=== PATIENT | female | born 1955 | race Caucasian/White ===

== ENCOUNTER 2017-11-30 00:13 | Outpatient (CLI) | payer BC, SELFPAY ==
--- NOTE | 2017-11-30 14:55 | DI.MAMMO_ITS ---
SYMPTOM/DIAGNOSIS: SCREENING FOR BREAST CA. MAMMOGRAM: Mammograms were interpreted according to the usual protocol including computer analysis with CAD system, tomosynthesis and C view imaging. No masses or microcalcifications are seen. There is nothing to suggest malignancy. IMPRESSION: Negative mammogram. Category 1, breast density D.. Routine screening is recommended. [facility] ASSESSMENT OF FINDINGS: Negative. Category 1. Patient will receive a letter notifying them of these results. BI-RADS category D. The breasts are extremely dense, which lowers the sensitivity of mammography.
== END 2017-11-30 00:33 ==
PROVIDERS: Visit Provider Nurse Practitioner
DX: Z12.31 Encounter for screening mammogram for malignant neoplasm of breast (principal)
CPT/HCPCS: 77063; 77067

== ENCOUNTER 2018-11-23 10:52 | Outpatient (REF) | payer BC, SELFPAY ==
[2018-11-23 21:38] LABS: ALT 28 U/L (14-59); AST 17 U/L (15-37); Alkaline Phosphatase 80 U/L (46-116); Anion Gap 10.1 mmol/L (3-11); BUN 14 mg/dL (7-18); Bilirubin, Total 0.4 mg/dL (0.2-1.0); CO2 27.9 mmol/L (21.0-32.0); CREATININE 0.59 mg/dL (0.55-1.02); Calcium 9.1 mg/dL (8.5-10.1); Calculated LDL 129 mg/dL; Chloride 103 mmol/L (98-107); Cholesterol 229 mg/dL (50-200); Glucose 91 mg/dL (70-100); HDL Cholesterol 72 mg/dL (40-60); Potassium 4.3 mmol/L (3.5-5.1); Sodium 141 mmol/L (136-145); Total Protein 6.8 g/dL (6.4-8.2); Triglyceride 144 mg/dL (30-150)
[2018-11-25 13:49] LABS: Hepatitis C Ab w Rflx HCV PCR Negative (NEGAT)
== END 2018-11-23 11:12 ==
LOC: NCHCN 10:52
PROVIDERS: PCP Nurse Practitioner Family; Visit Provider Nurse Practitioner Family
DX: I10 Essential (primary) hypertension (principal); K30 Functional dyspepsia; C7A.8 Other malignant neuroendocrine tumors; G47.61 Periodic limb movement disorder; K80.20 Calculus of gallbladder without cholecystitis without obstruction; Z11.59 Encounter for screening for other viral diseases
CPT/HCPCS: 80053; 80061; 86803

== ENCOUNTER 2019-10-24 19:57 | Outpatient (REF) | payer BC, SELFPAY ==
[2019-10-24 21:03] LABS: Abs Immature Grans 0.01 10^3/uL (0.0-0.06); Absolute Basophil Count 0.05 10^3/uL (0.0-0.2); Absolute Lymphocyte Count 1.77 10^3/uL (1.2-3.4); Absolute Monocyte Count 0.56 10^3/uL (0.1-0.8); Absolute Neutrophil Count 3.28 10^3/uL (1.2-6.7); Basophils % 0.9; Eosinophils % 1.7; HCT 42.1 % (36.0-46.0); HGB 14.2 g/dL (11.2-15.7); Immature Grans % 0.2; Lymphocytes % 30.7; MCH 32.3 pg (27.0-33.0); MCHC 33.7 % (32.0-36.0); MCV 95.7 fL (80-95); MPV 10.2 fL (8.0-11.0); Monocytes % 9.7; Neutrophils % 56.8; Nucleated RBC 0 %; Platelet Count 264 10^3/uL (130-400); RDW 11.8 % (11.7-14.6); RDW-SD 41.4 fL; WBC 5.77 10^3/uL (4.4-10.8)
[2019-10-24 21:23] LABS: ALT 20 U/L (14-59); AST 20 U/L (15-37); Albumin 4.1 g/dL (3.4-5.0); Alkaline Phosphatase 82 U/L (46-116); Anion Gap 9.3 mmol/L (3-11); BUN 16 mg/dL (7-18); Bilirubin, Total 0.5 mg/dL (0.2-1.0); CO2 26.7 mmol/L (21.0-32.0); CREATININE 0.62 mg/dL (0.55-1.02); Calcium 9.2 mg/dL (8.5-10.1); Calculated LDL 152 mg/dL (<100); Chloride 104 mmol/L (98-107); Cholesterol 247 mg/dL (<200); Glucose 93 mg/dL (74-106); HDL Cholesterol 73 mg/dL (40-60); Potassium 4.1 mmol/L (3.5-5.1); Sodium 140 mmol/L (136-145); TSH (W/Ref FT4) 1.59 uIU/mL (0.36-3.74); Total Protein 6.9 g/dL (6.4-8.2); Triglyceride 112 mg/dL (<150)
== END 2019-10-24 20:17 ==
LOC: NCHCN 19:57
PROVIDERS: PCP Nurse Practitioner Family; Visit Provider Nurse Practitioner Family
DX: F41.8 Other specified anxiety disorders (principal); R07.89 Other chest pain; G47.62 Sleep related leg cramps
CPT/HCPCS: 80053; 80061; 83735; 84443; 85025

== ENCOUNTER 2019-10-28 11:13 | Outpatient (CLI) | payer BC, SELFPAY | END 2019-10-28 11:33 | PROVIDERS: PCP Nurse Practitioner Family; Visit Provider Nurse Practitioner Family | DX: R07.89 Other chest pain (principal); I47.1 Supraventricular tachycardia | CPT/HCPCS: 93226 ==

== ENCOUNTER 2019-11-10 00:43 | Outpatient (CLI) | payer BC, SELFPAY ==
--- NOTE | 2019-10-31 08:44 | W.HOLTRPT ---
Date of service: 10/31/19 Time of Service: 08:44 Holter Monitor Report Referring Provider:: Gabriela Indications:: Chest pressure Holter Monitor Note: Is a 48-hour Holter monitor ordered for indication of chest pressure. ?Patient was in normal sinus rhythm for majority the recording with an average heart rate of 73 bpm. ?There were 2 episodes of supraventricular tachycardia with the longest lasting 5 beats. There were rare PACs. ?There are no episodes of ventricular tachycardia and rare PVCs. ?There are no episodes of atrial fibrillation no pauses greater than 3 seconds no evidence of high degree heart block. ?There were no patient triggered events.
--- NOTE | 2019-11-10 08:00 | ETT_ITS ---
APPROVED REPORT Exam: Exercise Treadmill Patient Location: Out-Patient Room/Bed: Stress Nurse: Trish Cheung RN BMI: 21.29 Baseline Rhythm: Sinus Rhythm Indications: Patient reports since approximately 3 weeks ago she has had episodes of lightheadedness, ???heart beating fast??? and mid chest ???tightness??? (05/16) when climbing stairs and biking hard t hat is relieved with sitting and resting. Patient states she thinks it is just stress. Medical History Medical History: Anxiety, Depression. Cardiac Medications: Lisinopril, Metoprolol Succinate. Allergies: No known drug allergies Cardiac Risk Factors: FHX of CAD, HTN, Hyperlipidemia. Previous Cardiac Procedures: None Pretest Chest Pain Characteristics: None Exercise History: Physically active Physical Disabilities: None Lung Sounds: Clear to auscultation Heart Sounds: Regular Stress Test Details Test: Exercise stress testing was performed using a Roman protocol. Rest Stress HR Resting HR Supine: 74 bpm Max Heart Rate (APMHR): 156 bpm Resting HR Standin bpm Target HR (85% APMHR): 132 bpm Max HR Achieved: 160 bpm % of APMHR: 102 HR response to stress: Normal HR response to stress BP Resting BP Supine: 138/72 mmHg Resting BP Standin/78 mmHg Max BP: 174/68 mmHg BP response to stress: Normal blood pressure response to stress. ECG Resting ECG: Sinus Rhythm Ectopy: Occasional PAC's and PVC's Stress ECG: No significant ST segment changes noted. Clinical Reason for Termination: Fatigue Stress Symptoms: None reported per patient. Exercise duration: 12 min2 sec Highest Stage Reached: Stage 4: 4.2 mph at 16% grade. Exercise capacity: 13.49 METs Functional Capacity: Above average capacity Stress ECG Conclusion 1. The resting electrocardiogram was normal. The patient exercised on the Roman protocol and complet ed a workload of 13.49 METS. 2. Normal heart rate and blood pressure response to exercise. Above average exercise capacity 3. Electrocardiographically there was no evidence of myocardial ischemia 4. Sporadic atrial and ventricular ectopic beats were seen 5. Reyna treadmill score is is +12, low risk, 99% survival at 5 years Stress Test Summary STAGE Time (mins) Speed (mph) Grade (%) HR BP SYMPTOMS METS Supine 74 138/72 Standing 86 134/78 1 3 1.7 10 109 130/68 4.6 2 6 2.5 12 128 144/64 7 3 9 3.4 14 138 152/64 10.2 1 min recovery 152 174/68 3 min recovery 98 158/66 6 min recovery 92 140/70
== END 2019-11-10 01:03 ==
PROVIDERS: PCP Nurse Practitioner Family; Visit Provider Nurse Practitioner Family
DX: R07.89 Other chest pain (principal); I47.1 Supraventricular tachycardia
CPT/HCPCS: 93017

== ENCOUNTER 2019-11-23 10:22 | Outpatient (REF) | payer BC, SELFPAY ==
--- NOTE | 2019-11-23 09:00 | PAPFT_PTH ---
PATIENT: Luisana Cotter LOC: [facility]#:[id number] AGE/SX: 64/F ROOM: RE11/23/[address]: Megan Morley : 1955 BED: DIS: 11/23/2019 SPEC #: [id number] RECD: 11/24/19 13:11 STATUS: XIOMARA REQ #: [id number] CAITLYN: 11/23/19 09:[address]: Megan Morley DEPT: [facility] Cytology RECD BY: Corrie Dangelo ENTERED: 11/24/19 13:11 SP TYPE: PAPFT OTHR DR: Sobeida Morgan Tissues: 1 - CX/ENDOCX FOR PAP SMEARS Procedures: PAP THIN PREP/UVM Screening Comments: [id number] (UNSATISFACTORY FOR EVALUATION)
== END 2019-11-23 10:42 ==
LOC: NCHCN 10:22
PROVIDERS: PCP Nurse Practitioner Family
DX: R87.615 Unsatisfactory cytologic smear of cervix (principal)
CPT/HCPCS: 88142

== ENCOUNTER 2019-12-16 03:53 | Outpatient (CLI) | payer BC, SELFPAY ==
--- NOTE | 2019-12-16 | DI.MAMMO_ITS ---
EXAM: MG MAMMO SCREENING CLINICAL HISTORY: SCREENING, Z12.39 TECHNIQUE: Mammograms were interpreted according to the usual protocol including computer analysis w [employer] CAD system, tomosynthesis and C-view imaging. COMPARISON: FINDINGS: The breasts are heterogeneously dense. No dominant mass or clumped microcalcification is identified in either breast. The current examination is compared with previous examinations including November 2017 and there has been no gross interval change in appearance in comparison with the prior studies. IMPRESSION: No specific evidence of malignancy at this time. Routine screening examinations are suggested at yea rly intervals in this age group according to the ACS ACR guidelines. BI-RADS Category 1 - Negative Breast Density - Category C - Heterogeneously dense
== END 2019-12-16 04:13 ==
PROVIDERS: PCP Nurse Practitioner Family
DX: Z12.31 Encounter for screening mammogram for malignant neoplasm of breast (principal)
CPT/HCPCS: 77063; 77067

== ENCOUNTER 2020-03-13 16:25 | Outpatient (REF) | payer BC, SELFPAY ==
--- NOTE | 2020-03-13 14:30 | PAPFT_PTH ---
PATIENT: Luisana Cotter LOC: [facility]#:[id number] AGE/SX: 64/F ROOM: RE03/13/[address]: Sobeida Morgan : 1955 BED: DIS: 03/13/2020 SPEC #: [id number] RECD: 03/14/20 12:54 STATUS: XIOMARA REJayda #: [id number] CAITLYN: 03/13/20 14:[address]: Sobeida Morgan DEPT: [facility] Cytology RECD BY: Corrie Dangelo Tissues: 1 - CX/ENDOCX FOR PAP SMEARS Procedures: PAP THIN PREP/UVM Screening HPV DNA PROBE Comments: [id number]
== END 2020-03-13 16:45 ==
LOC: NCHCN 16:25
PROVIDERS: PCP Nurse Practitioner Family; Visit Provider Nurse Practitioner Family
DX: Z12.4 Encounter for screening for malignant neoplasm of cervix (principal); Z11.51 Encounter for screening for human papillomavirus (HPV)
CPT/HCPCS: 88142; 87624

== ENCOUNTER 2020-12-25 08:27 | Outpatient (REF) | payer BC, SELFPAY ==
[2020-12-25 15:59] LABS: Calculated LDL 172 mg/dL (<100); Cholesterol 260 mg/dL (<200); HDL Cholesterol 74 mg/dL (40-60); Triglyceride 74 mg/dL (<150)
== END 2020-12-25 08:28 | disposition home or self-care (01) ==
LOC: NCHCN 08:27
PROVIDERS: PCP Nurse Practitioner Family; Visit Provider Internal Medicine
DX: I10 Essential (primary) hypertension (principal); I47.1 Supraventricular tachycardia; E78.5 Hyperlipidemia, unspecified
CPT/HCPCS: 80061

== ENCOUNTER → 2022-01-09 01:43 | Outpatient (CLI) | payer MEDICARE, SELFPAY ==
--- NOTE | 2022-01-09 08:16 | DI.MAMMO_ITS ---
Exam(s) MAMMO SCREENING EXAM: MAMMO SCREENING CLINICAL HISTORY: SCREENING, Z12.39 TECHNIQUE: Mammograms were interpreted according to the usual protocol including computer analysis w [facility] CAD system, tomosynthesis and C-view imaging. COMPARISON: FINDINGS: The breasts are heterogeneously dense. No dominant mass or clumped microcalcification is identified in either breast. Current examination is compared with previous examinations including December 2019 and there has been no gross interval change in appearance in comparison with the prior studies. IMPRESSION: No specific evidence of malignancy at this time. Routine screening examinations are suggested at yea rly intervals in this age group according to the ACS ACR guidelines. BI-RADS Category 1 - Negative Breast Density - Category C - Heterogeneously dense
== END ==
PROVIDERS: PCP Nurse Practitioner Family; Visit Provider Nurse Practitioner Family
DX: Z12.31 Encounter for screening mammogram for malignant neoplasm of breast (principal); R92.8 Other abnormal and inconclusive findings on diagnostic imaging of breast
CPT/HCPCS: 77063; 77067

== ENCOUNTER 2023-01-01 16:11 | Outpatient (REF) | payer MEDICARE, SELFPAY ==
[2023-01-01 15:18] LABS: ALT 26 U/L (14-59); AST 20 U/L (15-37); Albumin 3.9 g/dL (3.4-5.0); Alkaline Phosphatase 80 U/L (46-116); Anion Gap 8.6 mmol/L (3-11); BUN 14 mg/dL (7-18); Bilirubin, Total 0.5 mg/dL (0.2-1.0); CO2 27.4 mmol/L (21.0-32.0); CREATININE 0.7 mg/dL (0.55-1.02); Calcium 9.5 mg/dL (8.5-10.1); Calculated LDL 179 mg/dL (<100); Chloride 105 mmol/L (98-107); Cholesterol 285 mg/dL (<200); Estimated GFR 94.73 (mL/min/1.73m2); Glucose 98 mg/dL (74-106); HDL Cholesterol 79 mg/dL (40-60); Potassium 4.2 mmol/L (3.5-5.1); Sodium 141 mmol/L (136-145); TSH (W/Ref FT4) 1.66 uIU/mL (0.36-3.74); Total Protein 6.9 g/dL (6.4-8.2); Triglyceride 137 mg/dL (<150); Vitamin B12 384 pg/mL (193-986)
== END 2023-01-01 16:12 | disposition home or self-care (01) ==
LOC: NCHCN 16:11
PROVIDERS: PCP Nurse Practitioner Family; Visit Provider Nurse Practitioner Family
DX: F03.90 Unspecified dementia, unspecified severity, without behavioral disturbance, psychotic disturbance, mood disturbance, and anxiety; F41.8 Other specified anxiety disorders; I10 Essential (primary) hypertension; I47.10 Supraventricular tachycardia, unspecified; E78.5 Hyperlipidemia, unspecified
CPT/HCPCS: 80053; 80061; 82607; 84443

== ENCOUNTER → 2023-01-12 00:30 | Outpatient (CLI) | payer MEDICARE, SELFPAY ==
--- NOTE | 2023-01-12 | DI.MAMMO_ITS ---
Exam(s) MAMMO SCREENING EXAM: MAMMO SCREENING CLINICAL HISTORY: SCREENING FRO BREAST CANCER Z12.39,FAMILY H/O BREAST CA TECHNIQUE: Bilateral full field digital CC and MLO mammographic images were obtained with 3D tomosyn thesis and utilizing computer aided detection (CAD). COMPARISON: Available for comparison. FINDINGS: Masses/Architectural Distortion: None seen. The asymmetric breast tissue in the upper right breast is unchanged. Microcalcifications: No suspicious pleomorphic-type are seen. Skin Thickening/Nipple Retraction: None. IMPRESSION: 1. No significant interval change with no specific features of malignancy noted. 2. Unless there is more urgent need, screening mammography is recommended, as per [employer] guidelines. BI-RADS Category 2 - Benign Findings Breast Density - Category C - Heterogeneously dense Breast density category C or D implies that the patient has dense breast tissue. Dense breast tissue is very common and is not abnormal but dense breast tissue can make it harder to find cancer on a ma mmogram. Also, dense breast tissue may increase their breast cancer risk. This information about the result of the mammogram report was provided to the patient to raise their awareness. Use this report when you speak with the patient about their risks for breast cancer, which includes their family hist ory. At that time, you may recommend for more screening tests (Ultrasound or MRI) as they might be us eful based on their risk. A negative radiographic report should not delay biopsy if a dominant or clinically suspicious mass is present. Up to ten percent of cancers are not identified on mammography. A negative report may reinforce clinical impression. Adenosis and dense breasts may obscure an underlying neoplasm. False positive reports average 6 to 10%. Patient will receive a letter notifying them of these results.
== END ==
PROVIDERS: PCP Nurse Practitioner Family; Visit Provider Nurse Practitioner Family
DX: Z12.31 Encounter for screening mammogram for malignant neoplasm of breast (principal); R92.333 Mammographic heterogeneous density, bilateral breasts; Z80.3 Family history of malignant neoplasm of breast
CPT/HCPCS: 77063; 77067

== ENCOUNTER 2023-11-27 15:15 | Outpatient (REF) | payer MEDICARE, BC, SELFPAY ==
[2023-11-27 15:25] LABS: Bilirubin Negative (Negative); Blood Negative (Negative); Clarity Turbid (Clear); Glucose 100 mg/dL (Negative); Ketones Trace mg/dL (Negative); Leukocyte Esterase Negative (Negative); Nitrite Negative (Negative); Specific Gravity >= 1.030 (1.005-1.025); Urobilinogen 0.2 mg/dL (Up to 0.2); pH 5.5 (5-8)
[2023-11-27 15:48] LABS: COMMENT (LAB VIEW ONLY) 284.78 mg/dL; Microalb ug/mg Crea 5.3 ug/mg Cr
== END 2023-11-27 15:16 | disposition home or self-care (01) ==
LOC: NCHCN 15:15
PROVIDERS: PCP Nurse Practitioner Family; Visit Provider Nurse Practitioner Family
DX: I10 Essential (primary) hypertension (principal)
CPT/HCPCS: 81003; 82043; 82570

== ENCOUNTER 2023-12-21 16:47 | Outpatient (REF) | payer MEDICARE, BC, SELFPAY ==
[2023-12-21 16:05] LABS: Hemoglobin A1C 5.3 % (<5.7)
--- OUTSIDE RECORDS SUMMARY | 2023-12-21 16:48 | XMS_ITS | Encounter Summary ---
Author Organization [facility] Address [facility] [place] [address] Care Team Providers Care Automatic Profile Shaper Operator Name Role Phone Sobeida Morgan APRN Primary Care Provider [phone] Reason for Visit * Reason Comments Skin Cancer Examination Encounter Details Date Type Department Care Team (Late st Contact Info) Description 10/30/2020 9:30 AM EDT Office Visit Dermatology at [facility] [address] [place] [address] [facility] [place] [address] Seborrheic keratoses; Multiple benign nevi; Lentigines Social History Tobacco Use Types Packs/Day Years Used Date Smoking Tobacco: Never Smokeless Tobacco: Never Alcohol Use Standard Drinks/Week Comments Yes 3 (1 standard drink = 0.6 oz pur e alcohol) glass of wine 3 times a week. Sex and Gender Information Value Date Recorded Sex Assigned at Not on file Gender Identity Not on file Sexual Orientation Not on file documented as of this encounter Progress Notes * Josue Real MD - 10/30/2020 9:30 AM EDT Images from the original note were not included. DEPARTMENT OF DERMATOLOGY Medical Dermatology Clinic Provider: JOSUE REAL MD Preferred name Luisana Preferred contact method for results [x] Phone (cell) [] MyD-H [] Letter Permission to leave detailed message Yes Permission to discuss care with , Tao Past Medical History Date, location, treatment Melanoma N DN N SCC N BCC N AK Yes UV exposure & protection + history of blistering sunburn Other relevant past medical history N Family History Details Melanoma N NMSC Mother, brother Other relevant family history N Social History Occupation: works at [employer] Other: Pre-Procedure Screening Details Allergy to lidocaine, epinephrine, Dermabond, chlorhexidine, or adhesives: N Bleeding disorder or blood thinners: N Pacemaker, defibrillator, deep brain stimulator, cochlear implant: N History of Present Illness: Luisana Harris Nate is a 65 y.o. established patient who returns to the clinic today for a full skin examination with the following concerns: - Lesion on the forehead that has been present for ~6 months and is asymptomatic Last FSE: 07/26/2019 Last visit at [facility] Derm: 07/26/2019 Last visit with this provider: 07/26/2019 Medications: Reviewed in eD-H Allergies: Reviewed in eD-H Skin Examination: Full skin examination: Patient asked to undress to their comfort level. Verbalized that the provider???s preference is that the patient remove all clothing and that the provider will not examine areas patient elects to keep covered. Patient elects to keep underwear on and have the following examined: scalp, hair, face, ears, neck, chest, axillae, abdomen, back, and upper and lower extremities. Genitalia and buttocks were not examined. Assessment/Plan: A. Seborrheic Keratoses - Stuck on, waxy papules on the trunk and extremities, including forehead. - Discussed benign nature of lesions and provided reassurance. No treatment necessary at this time. B. Lentigines - Scattered light-brown, evenly pigmented, well-demarcated macules on sun-exposed areas of the trunk and extremities. - No worrisome pigmented lesions. Discussed benign nature of lesions and provided reassurance. Willcontinue to monitor. C. Benign Nevi - Scattered medium brown, evenly pigmented macules and papules on the trunk and extremities with reassuring pigment pattern on dermoscopy. - Discussed benign nature of lesions and provided reassurance. Will continue to monitor. Other: - Discussed importance of sun protection (protective clothing and SPF 30+ broad- spectrum sunscreen)and sun avoidance strategies. RTC: 1 year for FSE [] Note routed to racing secretary and handicapper [x] Recall placed in scheduling system [] Appointment scheduled before exiting Delores Funez and Janny Iqbal CMA have performed the documentation for this encounter in the presence of and acting as scribes for JOSUE REAL MD. I performed the above scribed service and agree with the accuracy of the documentation in this encounter. Reviewed and signed by: JOSUE REAL MD Dermatology [facility] documented in this encounter Plan of Treatment Upcoming Encounters Date Type Department Care Team (Late st Contact Info) Description 12/24/2023 10:00 AM EDT Office Visit Dermatology at [facility] [address] [place] [address] [facility] [address] [place] [address] documented as of this encounter Visit Diagnoses Diagnosis Seborrheic keratoses Multiple benign nevi Benign neoplasm of skin, site unspecified Lentigines Other dyschromia documented in this encounter Care Teams Automatic Profile Shaper Operator Relationship Specialty Start Date End Date Sobeida Morgan APRN [address] [place] [address] PCP - General Family Medicine 05/20/18 documented as of this encounter
--- OUTSIDE RECORDS SUMMARY | 2023-12-21 16:48 | XMS_ITS | Encounter Summary ---
Author Organization [facility] Address [facility] [place] [address] Care Team Providers Care Vibrating Screen Operator Name Role Phone Megan Morley MD Primary Care Provider [phone] Reason for Visit * Auth/Cert Specialty Diagnoses / Procedures Referred By Ara dailey Referred To Contact Diagnoses 1 yr surv from 07/17/16 Procedures PRO UPPER GI ENDOSCOPY, DIAGNOSTIC EGD, UPPER GI ENDOSCOPY Referral ID Status Reason Start Date Expiration Date Visits Re quested Visits Authorized [id number] 1 1 Encounter Details Date Type Department Care Team (Late st Contact Info) Description 09/15/2017 10:15 AM EDT - 09/15/2017 11:00 AM EDT [place] [address] Epi Rees MD [facility] [place] [address] EGD, UPPER GI ENDOSCOPY (WRVU 2.09) Social History Tobacco Use Types Packs/Day Years [...] on file documented as of this encounter Last Filed Vital Signs Vital Sign Reading Time Taken Comments Blood Pressure 142/91 09/15/2017 10:06 AM EDT Pulse 70 09/15/2017 10:06 AM EDT Temperature - - Respiratory Rate 16 09/15/2017 10:06 AM EDT Oxygen Saturation 98% 09/15/2017 10:06 AM EDT Inhaled Oxygen Concentration - - Weight 56.7 kg (125 lb) 09/15/2017 10:06 AM EDT Height 162.6 cm (5' 4) 09/15/2017 10:06 AM EDT Body Mass Index 21.46 09/15/2017 10:06 AM EDT documented in this encounter Discharge Instructions * Discharge Instructions* Mayela Hassan RN - 09/15/2017 11:52 AM EDT Please call [phone] before 8pm Mon-Fri with problems, questions or concerns. If you call after 8pm or on weekends, call the Hospital at [phone] and ask to speak to the Pay Agent solution analyst and the ice cream machine operator will contact that person for you. UPPER GI ENDOSCOPY WHAT TO EXPECT AFTER THE PROCEDURE After the test you may feel a little more gassy or bloated than usual, this is normal. ACTIVITY Because of the sedation that you received Your judgement and reaction time are affected ?? Go home and rest quietly for the remainder of the day. You may resume your normal activities tomorrow. ?? Change from one position to the next slowly. You may lose your balance unexpectedly Be careful on stairs, as you may be unsteady on your feet. FOR THE NEXT 24 HRS ?? DO NOT DRIVE OR OPERATE ANY MACHINERY ?? DO NOT DRINK ALCOHOLIC BEVERAGES ?? DO NOT SIGN LEGAL DOCUMENTS ?? If you are a smoker: DO NOT SMOKE WHILE YOU ARE ALONE Diet ?? Start by eating small portions of foods that ordinarily will not upset your stomach. Be gentle with what you choose to start with. ?? Drink plenty of fluids ( unless otherwise told not to) Medications You may have a mild sore throat. Ice chips, popsicles, over the counter throat lozenges or spray may help numb your throat. This procedure should not cause a fever. IV SITE-- slight redness or tenderness is normal, you can use warm compresses if you get concerned.If the tenderness +/or redness increases or foul drainage and a red streak occurs, please contact your PCP immediately. WHEN SHOULD YOU CALL FOR HELP? Call 911 anytime you think that you need emergency care. For example, call if: You passed out (lost consciousness). You cough up blood. You vomit blood or what looks like coffee grounds. You pass maroon or very bloody stools. Call your healthcare provider or seek immediate medical attention if: You have trouble swallowing. You have belly pain. Your stools are black or tarlike or have streaks of blood. You are sick to your stomach or cannot keep fluids down. Watch closely for changes in your health, and be sure to contact your doctor IF Your throat still hurts after a day or two You do not get better as expected. Thursday-Thursday Same Day Endo [phone] 7a-8p Otherwise contact [phone] and ask to speak to the technology specialist solution analyst Follow-up care is a magaña part of your treatment and safety. Be sure to make and go to all appointments, and call your doctor if you are having problems. Instructions have been reviewed and patient expresses understanding * Patient Instructions* Epi Rees MD - 09/15/2017 11:59 AM EDT Please see Recommendations in the Provation procedure report which is documented in the procedural note in E-DH. documented in this encounter Medications at Time of Discharge Medication Sig Dispensed Refills Start Date End Date meTOPROLOL tartrate (LOPRESSOR) 25 mg Tablet Take 25 mg by mouth daily. omeprazole (PRILOSEC) 20 mg Capsule, Delayed Release(E.C.) Take 20 mg by mouth daily. lisinopril (PRINIVIL;ZESTRIL) 10 mg Tablet Take 10 mg by mouth daily. famotidine (PEPCID) 20 mg Tablet Take 20 mg by mouth daily. 06/04/2018 documented as of this encounter H&P Notes * Epi Rees MD - 09/15/2017 11:19 AM EDT Gastroenterology and Hepatology Pre-Procedure History and Physical Exam Procedure: EGD: Indication: F/up duodenal polyps and possible microcarcinoid. EXAM: HEENT: Airway examined, oropharynx clear Mallampati Score: Per anesthesia LUNGS: Clear to auscultation HEART: Regular rate and rhythm, normal S1, S2 ABDOMEN: Normal bowel sounds, soft, non tender, non distended, A/P Proceed with the planned endoscopic procedure. ASA 2 - Patient with mild systemic disease with no functional limitations Sedation Plan: deep Risks and benefits of the procedure explained to the patient. Consent signed. documented in this encounter Miscellaneous Notes * Op Note - Epi Rees MD - 09/15/2017 11:59 AM EDT [facility] Operative Note Patient Name: Luisana Magdaleno : [id number] MR#: [id number] Case Date: 09/15/2017 Surgeon: Surgeon(s) and Role: * Epi Rees MD - Primary Preoperative diagnosis: 1 yr surv from 07/17/16 Postoperative diagnosis: * No post-op diagnosis entered * Procedure(s) (LRB): EGD, UPPER GI ENDOSCOPY (N/A) Full procedure note is documented under the Procedure section of eDH. documented in this encounter Plan of Treatment Upcoming Encounters Date Type Department Care Team (Late st Contact Info) Description 12/24/2023 10:00 AM EDT Office Visit Dermatology at [address] [address] Chika Waite MD [facility] DR [address] [place] [address] documented as of this encounter Procedures Procedure Name Priority Date/Time Associated Diagnosis Comments UPPER GI ENDOSCOPY Routine 09/15/2017 11 :34 AM EDT EGD, UPPER GI ENDOSCOPY (WRVU 2.09) 09/15/2017 11:33 AM EDT 1 yr surv from 07/17/16 documented in this encounter Results * UPPER GI ENDOSCOPY (09/15/2017 11:34 AM EDT) UPPER GI ENDOSCOPY [facility] Endoscopy ___ Procedure Date: 09/15/2017 11:34 AM ? Patient Name: Luisana Magdaleno ? Date of : 1955 ? Age: 62 ? Order #: [id number] ? Instrument Name: [id number] ? ___ Procedure: ? Upper GI endoscopy Indications: ? f/up duodenal polyps and possible ? microcarcinoid Providers: ? Epi Rees MD, Lopez Rubin, ? RN, Hilda Baker, Sap Specialist Referring MD: ?Megan Morley MD Medicines: ? Propofol per Anesthesia Complications: ? No immediate complications. ___ Procedure: ? Pre-Anesthesia Assessment: ? - Prior to the procedure, a History ? and Physical was performed, and ? patient medications, allergies and ? sensitivities were reviewed. The ? patient's tolerance of previous ? anesthesia was reviewed. ? - The risks and benefits of the ? procedure and the sedation options ? and risks were discussed with the ? patient. All questions were answered ? and informed consent was obtained. ? - ASA Grade Assessment: II - A ? patient with mild systemic disease. ? - Using IV propofol under the ? supervision of an anesthesiologist ? was determined to be medically ? necessary for this procedure based on ? patient's history of problems with ? anesthesia. ? The procedure, indications, benefits, ? risks and alternatives were explained ? to the patient. Specifically ? discussed were potential ? complications including, but not ? limited to, bleeding, perforation, ? infection, missing a cancer, and ? adverse medication reactions. The ? Endoscope was introduced through the ? mouth, and advanced to the second ? part of duodenum. The patient ? tolerated the procedure well. The ? patient tolerated the procedure well. ? Findings: ? The esophagus was normal. ? The Z-line was found 41 cm from the incisors. ? A few small sessile polyps were found in the gastric ? fundus and in the gastric body. ? Otherwise normal stomach including retroflex view of ? cardia and fundus. ? The examined duodenum was normal. ? Moderate Sedation: ? Not applicable - See Anesthesia documentation Impression: ?- Normal esophagus. ? - A few benign fundic gland gastric ? polyps. ? - Normal examined duodenum. There ? were no polyps or nodules/masses. ? - No specimens collected. Recommendation: ?- Observe patient's clinical course. ? - Reassurance. ? Attending Participation: ? I personally performed the entire procedure. ? Epi Rees MD 09/15/2017 12:03:29 PM This report has been signed electronically. Number of Addenda: 0 Note Initiated On: 09/15/2017 11:34 AM PROVATION 09/15/2017 11:3 4 AM EDT Megan Morley MD GENERAL SURGICAL ORD ERABLES PROVATION documented in this encounter Visit Diagnoses Not on filedocumented in this encounter Administered Medications Inactive Administered Medications - up to 3 most recent administrations Medication Order MAR Action Action Date Dose Rate Site lactated Ringers infusion 100 mL/hr, Intravenous, CONTINUOUS, Starting on Thu09/15/17 at 1030, Until Thu09/15/17 at 1213, Endoscopy (Day of Procedure) New Bag 09/15/2017 11:32 AM EDT New Bag 09/15/2017 10:10 AM EDT 100 mL/hr 100 mL/hr documented in this encounter Active and Recently Administered Medications Times are shown in EDT. Continuous Medication Order 09/13/2017 09/14/2017 09/15/2017 lactated Ringers infusion (CANCELED) 100 mL/hr, Intravenous, CONTINUOUS, Starting on Thu09/15/17 at 1030, Until Thu09/15/17 at 1213, Endoscopy (Day of Procedure) 1010 (New Bag - Prov ider: Lucinda Hill RN)1132 (New Bag - Provider: Dwayne Rodriguez CRNA)1145 (Anesthesia Volume Adjustment - Provider: Dwayne Rodriguez CRNA) documented in this encounter Care Teams Vibrating Screen Operator Relationship Specialty Start Date End Date Megan Morley MD [address] [place] [address] PCP - General Family Medicine 07/17/16 05/19/18 documented as of this encounter
--- OUTSIDE RECORDS SUMMARY | 2023-12-21 16:48 | XMS_ITS | Clinical Summary ---
Author Organization [facility] [place] [address] Care Team Providers Care Plunger Shovel Operator Name Role Phone Sobeida Morgan APRN Primary Care Provider [phone] Allergies No known active allergies Medications Medication Sig Dispensed Refills Start Date End Date Status lisinopril (PRINIVIL;ZESTRIL) 10 mg Tablet Take 10 mg by mouth daily. Active meTOPROLOL tartrate (LOPRESSOR) 25 mg Tablet Take 25 mg by mouth daily. Active omeprazole (PRILOSEC) 20 mg Capsule, Delayed Release(E.C.) Take 20 mg by mouth daily. Active Active Problems No known active problems Social History Tobacco Use Types Packs/Day Years Used Date Smoking Tobacco: Never Smokeless Tobacco: Never Alcohol Use Standard Drinks/Week Comments Yes 3 (1 standard drink = 0.6 oz pur e alcohol) glass of wine 3 times a week. Sex and Gender Information Value Date Recorded Sex Assigned at Not on file Gender Identity Not on file Sexual Orientation Not on file Last Filed Vital Signs Vital Sign Reading Time Taken Comments Blood Pressure 124/73 09/15/2017 12:10 PM EDT Pulse 70 09/15/2017 10:06 AM EDT Temperature - - Respiratory Rate 18 09/15/2017 12:10 PM EDT Oxygen Saturation 99% 09/15/2017 12:10 PM EDT Inhaled Oxygen Concentration - - Weight 56.7 kg (125 lb) 09/15/2017 10:06 AM EDT Height 162.6 cm (5' 4) 09/15/2017 10:06 AM EDT Body Mass Index 21.46 09/15/2017 10:06 AM EDT Plan of Treatment Upcoming Encounters Date Type Department Care Team (Late st Contact Info) Description 12/24/2023 10:00 AM EDT Office Visit Dermatology at [facility] [address] [place] [address] [facility] [place] [address] Health Maintenance Due Date Last Done Comments CT Colonography 1955 Colonoscopy 1955 Colorectal Cancer Screening 1955 FIT DNA 1955 FIT 1955 Sigmoidoscopy (10 year) with FIT yearly 1955 Sigmoidoscopy 1955 Hepatitis C Screening 05/08/1973 Tetanus/Diphtheria/Pertussis Vaccines (1 - Tdap) 05/08 Breast Cancer Share Decision Needed 1995 Breast Cancer screening 1995 Zoster vaccine (1 of 2) 05/08/2005 Advance Directive 05/08/2010 Bone Density Scan 05/08/2020 Pneumoccocal Vaccine: 65+ (1 of 1 - PCV) 05/08/2020 Covid-19 Vaccine (1 - 2022-24 season) 2023 Influenza (Flu) vaccine (1 o f 1 - Influenza standard series) 11/08/2023 Care Teams Plunger Shovel Operator Relationship Specialty Start Date End Date Sobeida Morgan APRN [address] [place] [address] PCP - General Family Medicine 05/20/18
--- OUTSIDE RECORDS SUMMARY | 2023-12-21 16:48 | XMS_ITS | Encounter Summary ---
Author Organization [facility] Address [facility] [place] [address] Care Team Providers Care Residential Designer Name Role Phone Megan Morley MD Primary Care Provider [phone] Reason for Visit * Reason Comments Skin Check * Consultation (Routine) - Closed Specialty Diagnoses / Procedures Referred By Contac t Referred To Contact Dermatology Diagnoses multiple skin lesions Sobeida Morgan APRN [address] [place] [address] [facility] [address] [place] [address] Referral ID Status Reason Start Date Expiration Date V isits Requested Visits Authorized [id number] Closed Consult, Test & Treat Connection [facility] 09/16/2016 09/16/2017 1 1 Encounter Details Date Type Department Care Team (Late st Contact Info) Description 10/20/2016 9:30 AM EDT Office Visit Dermatology at [facility] [address] [place] [id number] Sanjana Mason MD [facility] [address] [place] [address] Seborrheic keratosis, inflamed; Conteh angioma; SK (seborrheic keratosis) Social History Tobacco Use Types Packs/Day Years Used Date Smoking Tobacco: Never Smokeless Tobacco: Never Alcohol Use Standard Drinks/Week Comments Yes 0 (1 standard drink = 0.6 oz pur e alcohol) glass of wine 3 times a week. Sex and Gender Information Value Date Recorded Sex Assigned at Not on file Gender Identity Not on file Sexual Orientation Not on file documented as of this encounter Progress Notes * Sanjana Mason W - 10/20/2016 9:30 AM EDT Images from the original note were not included. DERMATOLOGY - NEW PATIENT NOTE Date of service: 10/20/2016 Luisana Sullivan : 1955, 61 y.o. CC: Lesion on back HPI: Luisana Sullivan is referred by Sobeida Morgan with the following concerns: - she requests a full skin exam. She has many moles and cannot see the ones on her back. Some have been itchy and irritated in the past few weeks, as they are on her bra line and rub against her clothing. Never before treated. - she does protect her skin from the sun with sunscreen SPF30. 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 lisinopril (PRINIVIL;ZESTRIL) 10 mg Tablet, Take 10 mg by mouth daily., Disp: , Rfl: ??? meTOPROLOL tartrate (LOPRESSOR) 25 mg Tablet, Take 25 mg by mouth daily., Disp: , Rfl: ??? famotidine (PEPCID) 20 mg Tablet, Take 20 mg by mouth daily., Disp: , Rfl: No Known Allergies Review of Systems: - General: Feels well. - Skin: No other skin concerns. Examination: - Constitutional: Patient was alert, well-appearing and in no noticeable distress. - Skin: Skin examination of the scalp, face, ears, neck, back, chest, abdomen, right and left upperextremities, right and left lower extremities, hands, feet, and buttocks was normal with the exception of the findings listed below. Diagnosis/Skin findings/Assessment/Plan: 1. Inflamed Seborrheic Keratosis, back - I discussed this condition with the patient and explored therapeutic options. I recommended this be treated with LN2, patient is in agreement to this treatment plan. Instructed to call if areas do not resolve as expected or if problems arise. Procedure Note: Procedure: Destruction of lesion(s) with cryotherapy. Number:1 Location: as above Discussed procedure and expectations including risks (including risk of hypopigmentation) and benefits. Verbal consent obtained. Frozen with LN2, 15-30 second thaw time, TWICE. There were no complications; the patient tolerated the procedure well. Post-procedure expectations and wound care were reviewed. 2. Conteh Angioma(s) - benign. - reassurance given. 3. Seborrheic Keratoses: Multiple farooq-brown, greasy, stuck-on papules on the -- Discussed the benign nature of these lesions. -- AAD handout provided 4. Discussed importance of sun protection, sun avoidance strategies, protective clothing, and sunscreen. I discussed warning signs for skin cancer, including the ABCE's of melanoma. AAD handout provided. RTC: 3 years for FBSE Note initiated by YARI MEDRANO LPN. I am documenting this encounter acting as the scribe for and inthe presence of Sanjana Mason MD I performed the above scribed service and agree with the accuracy of the documentation in this encounter. Reviewed and signed by Sanjana Mason MD Resident in Dermatology [facility] Patient discussed with staff makeup editor: Isidro Knox MD Section of Dermatology [facility] * Isidro Knox MD - 10/20/2016 9:30 AM EDT I was the supervising physician working with Dermatology resident, Dr. Mason, in the Dermatology Clinic during this patient visit. The level of resident supervision for this patient visit was indirect supervision with direct supervision immediately available (definition: [facility] GME Policy Statement on Graduate Medical Education, Supervision of Graduate Medical Trainees). I was immediately available to Dr. Mason for questions and discussion regarding this visit. I have reviewed his encounter note details and level of service. ISIDRO KNOX MD FAAD Staff Physician documented in this encounter Plan of Treatment Upcoming Encounters Date Type Department Care Team (Late st Contact Info) Description 12/24/2023 10:00 AM EDT Office Visit Dermatology at [facility] [address] [place] [address] Chika Waite MD [facility] [address] [place] [address] documented as of this encounter Visit Diagnoses Diagnosis Seborrheic keratosis, inflamed Inflamed seborrheic keratosis Conteh angioma Nevus, non-neoplastic SK (seborrheic keratosis) Other seborrheic keratosis documented in this encounter Care Teams Residential Designer Relationship Specialty Start Date End Date Megan Morley MD [address] [place] [address] PCP - General Family Medicine 07/17/16 05/19/18 documented as of this encounter
--- OUTSIDE RECORDS SUMMARY | 2023-12-21 16:48 | XMS_ITS | Encounter Summary ---
Author Organization [facility] Address [facility] [place] [address] Care Team Providers Care Learning Facilitator Name Role Phone Sobeida Morgan APRN Primary Care Provider [phone] Reason for Visit * Reason Comments Skin Cancer Examination Encounter Details Date Type Department Care Team (Late st Contact Info) Description 07/26/2019 1:00 PM EDT Office Visit Dermatology at [facility] [address] [place] [address] Kezia Real MD [facility] [place] [address] AK (actinic keratosis); SK (seborrheic keratosis); History of actinic keratosis Social History Tobacco Use Types Packs/Day Years [...] on file documented as of this encounter Patient Instructions * Patient Instructions* Calir Strickland CCMA - 07/26/2019 1:00 PM EDT Actinic Keratoses Diagnosis: You have been diagnosed today with an actinic keratosis. These dry, scaly patches are considered the earliest stage in the development of skin cancer. A significant percentage of actinic keratoses develop into squamous cell carcinoma skin cancer; estimates range from 10-20% over a 10-year period. Because of this risk, actinic keratoses are usually treated. Treatment: You were treated today with liquid nitrogen. This is the most common treatment for actinic keratoses. Liquid nitrogen is extremely cold and freezes the surface of the skin, causing the lesion to flake off. This treatment can be uncomfortable but discomfort should subside after a couple of hours. The area treated will look red and irritated, and it may blister up or turn dark, then fall off. This is normal. Wound care: You do not need any special treatment for the area, but you may find cold compresses and/or a lightapplication of Vaseline soothing. For best results, do not rub or pick at the healing lesion. Expected healing time is 3-4 weeks. Please contact the clinic if the lesion has not fully resolved after 6 weeks. Prevention: Long-term exposure to the sun is the single most significant cause of actinic keratoses, so the best defense against them is a comprehensive sun protection program. This includes wearing protective clothing and a wide-brimmed hat, avoiding the sun at midday when ultraviolet rays are strongest, staying in the shade as much as possible, and wearing a broad-spectrum sunscreen with a sun protection factor (SPF) of at least 30. Contact information: On weekdays (8am to 5pm), please call the clinic at [phone]. After 5pm, and on weekends and holidays, please call the hospital at [phone] and ask for the Traffic Court Referee Floor Coverer. documented in this encounter Progress Notes * Kezia Real MD - 07/26/2019 1:00 PM EDT DERMATOLOGY ESTABLISHED PATIENT CLINIC NOTE Date of Service: 07/26/2019 Luisana Sullivan : 1955 Provider: Kezia Real MD Chief Complaint Patient presents with ??? Skin Cancer Examination SKIN HX Personal History Y/N Date, location, treatment Melanoma No DN No SCC No BCC No AK or field cancerization therapy Yes 5FU/Carac: PDT: nicotinamide: [] Yes [] No Immunosuppression or malignancy No Blistering sunburns or tanning bed use Yes Many sunburns, some blistering Other (i.e., eczema, psoriasis) No Family History Y/N Parents, siblings, children Melanoma No NMSC Yes Mother, brother Other No Patient Preferences Preferred name Luisana Preferred contact method [] Home [x] Cell [] myD-H [] Other: Permission to leave detailed message including results [x] Yes [] No Permission to discuss care with (Tao) Preferred pharmacy [facility] in [place], [place] Procedure Screening Questions Y/N Allergies to lidocaine or epinephrine No Blood thinners No Pacemaker or defibrillator No HPI Luisana Sullivan is a 64 y.o. female, established patient last seen by me on 06/04/2018. Here today for a full skin exam with the following concerns: - Recheck right nasal tip (hx of AK s/p LN2 at last encounter); similar, non- tender lesions on the nasal dorsum and left cheek - Dry, rough lesions on the back Last FSE: 10/20/16 MEDS Current Outpatient Medications Medication Sig Dispense Refill ??? omeprazole (PRILOSEC) 20 mg Capsule, Delayed Release(E.C.) Take 20 mg by mouth daily. ??? lisinopril (PRINIVIL;ZESTRIL) 10 mg Tablet Take 10 mg by mouth daily. ??? meTOPROLOL tartrate (LOPRESSOR) 25 mg Tablet Take 25 mg by mouth daily. No current facility-administered medications for this visit. ADR No Known Allergies ROS General: Feeling well Skin: Denies other skin complaints EXAM General: NAD, pleasant, cooperative Skin: Patient was asked to undress to the level of her comfort. Verbalized that the provider's preference is for the patient to remove all clothing and that the provider will not examine areas patient elects to keep covered. Patient's decision was to remove bra and keep underwear on and have the following examined: skin of the scalp, hair, face, ears, neck, chest, breasts, abdomen, back, axillae,upper and lower extremities, hands, and feet. Buttocks and genitalia were not examined. Significant Skin Findings: A. Nasal dorsum x 1, left cheek x 1 0.2-0.3 cm scaly irregular pink papules. [Total: 2] B. Back: Brown papules/plaques with waxy stuck-on appearance. Not symptomatic or worrisome on dermoscopy. C. Right nasal tip: History of actinic keratosis; resolved s/p LN2. ASSESSMENT/PLAN A. Actinic Keratoses - Explained etiology, natural history and premalignant potential of these lesions. - Discussed treatment with cryotherapy, including the risks and benefits. - Patient elects to proceed with cryotherapy today. - Recommended moisturizer with sunscreen (such as CerGaby HEMPHILL or Patricia PARKER) for daily use. Procedure: Destruction of lesion(s) with cryotherapy (LN2). Location(s): As noted above. Number: 2 Discussed procedure and expectations, including risks (especially hypopigmentation) and benefits. Verbal consent obtained. Frozen with LN2, 15-30 second thaw time, twice. There were no complications;patient tolerated the procedure well. Post-procedure expectations and wound care reviewed. - Instructed patient to return to clinic for re-evaluation if lesions do not resolve with this treatment. B. Seborrheic Keratoses - Etiology discussed. - Patient reassured that benign in nature. C. History of Actinic Keratosis - Resolved s/p LN2. - No further treatment warranted at this time. Follow Up: RTC in 1 year for: [] FSE [x] Follow up [x] Reminder placed in system [] Appointment scheduled before exiting Note initiated by: KATLYN Vidal I am documenting this encounter acting as the scribe for and in the presence of Dr. Real: Colleen Cee I performed the above scribed service and agree with the accuracy of the documentation in this encounter. Kezia Real MD Trace Evidence Technician of Dermatology Department of Surgery [facility] cc: Sobeida Morgan APRN documented in this encounter Plan of Treatment Upcoming Encounters Date Type Department Care Team (Late st Contact Info) Description 12/24/2023 10:00 AM EDT Office Visit Dermatology at [facility] [address] [place] [address] Chika Waite MD [facility] [address] [address] documented as of this encounter Visit Diagnoses Diagnosis AK (actinic keratosis) Actinic keratosis SK (seborrheic keratosis) Other seborrheic keratosis History of actinic keratosis Personal history of diseases of skin and subcutaneous tissue documented in this encounter Care Teams Learning Facilitator Relationship Specialty Start Date End Date Sobeida Morgan APRN [address] [place] [address] PCP - General Family Medicine 05/20/18 documented as of this encounter
--- OUTSIDE RECORDS SUMMARY | 2023-12-21 16:48 | XMS_ITS | Encounter Summary ---
Author Organization [facility] Address [facility] [place] [address] Care Team Providers Care Molding Press Operator Name Role Phone Megan Morley MD Primary Care Provider [phone] Encounter Details Date Type Department Care Team (Latest Contact Info) Description 07/17/2016 6:54 AM EDT - 07/17/2016 10:55 AM EDT Hospital En[place] [address] Epi Rees MD [facility] [place] [address] Discharge Disposition: Home Social History Tobacco Use Types Packs/Day Years Used Date Smoking Tobacco: Never Alcohol Use Standard Drinks/Week Comments [...] Sign Reading Time Taken Comments Blood Pressure 143/78 07/17/2016 10:00 AM EDT Pulse 83 07/17/2016 7:40 AM EDT Temperature - - Respiratory Rate 18 07/17/2016 10:00 AM EDT Oxygen Saturation 99% 07/17/2016 10:00 AM EDT Inhaled Oxygen Concentration - - Weight 53.5 kg (118 lb) 07/17/2016 7:45 AM EDT Height 162.6 cm (5' 4) 07/17/2016 7:45 AM EDT Body Mass Index 20.25 07/17/2016 7:45 AM EDT documented in this encounter Discharge Instructions * Discharge Instructions* Tao Williamson RN - 07/17/2016 9:37 AM EDT Upper Endoscopic Ultrasound ( EUS) &/or Endoscopic Retrograde Cholangiopancreatography ( ERCP) EUS- a test to look for problems in the stomach, liver, gallbladder, and other organs- ERCP-when it is suspected that the bile or pancreatic ducts are blocked. After the test you may feel more gassy than usual. This normal Activity Because of the sedation that you received Your judgement and reaction time are affected ?? Go home and rest quietly for the remainder of the day. You may resume your normal activities tomorrow. ?? Change from one position to the next slowly. You may lose your balance unexpectedly ?? Be careful on stairs, as you may be unsteady on your feet. FOR THE NEXT 24 HRS ?? DO NOT DRIVE OR OPERATE ANY MACHINERY ?? DO NOT DRINK ALCOHOLIC BEVERAGES ?? DO NOT SIGN LEGAL DOCUMENTS ?? If you are a smoker: DO NOT SMOKE WHILE YOU ARE ALONE Diet ?? Start with liquids and progress to small portions of foods that are least likely to upset your stomach. Be gentle with what you choose to start with. Avoid gas producing foods for the next few days ?? Drink plenty of fluids ( unless your doctor has told you not to) Medicines you You may have a sore throat for a day or two after the test. You may use ice chips, popsicles, xdvf-ojh-pjubafs throat lozenges or sprays that may help numb your throat. IV SITE-- slight redness or tenderness is normal, you can use warm compresses if you get concerned.If the tenderness +/or redness increases or foul drainage and a red streak occurs, please contact your PCP immediately. When should call for help? Call 911 anytime you think you may need emergency care. For example, call if: You passed out ( lost consciousness) You cough up blood You vomit blood that looks like coffee grounds You pass maroon or very bloody stools Call you Doctor now You have trouble swallowing Throat, chest, abdominal pain that worsens after taking a dose of pain medicine Bloody or dark stools Vomit and are unable to hold fluids Fever Watch closely for any changes in your health, and be sure to contact your doctor if: Your throat still hurts after a day or two You do not get better as expected Thursday-Thursday Same Day Endo [phone] 7a-8p Otherwise contact [phone] and ask to speak to the school bus inspector materials planner/production planner The patient reports understanding discharge instructions UPPER GI ENDOSCOPY WHAT TO EXPECT AFTER [...] better as expected. Thursday-Thursday Same Day Endo [phone] 7a-8p Otherwise contact [phone] and ask to speak to the school bus inspector materials planner/production planner Follow-up care is a magaña part of your treatment and safety. Be sure to make and go to all appointments, and call your doctor if you are having problems. Instructions have been reviewed and patient expresses understanding * Patient Instructions* Epi Rees MD - 07/17/2016 10:50 AM EDT Please see Recommendations in the Provation procedure report which is documented in the procedural note in E-DH. documented in this encounter Medications at Time of Discharge Medication Sig Dispensed Refills Start Date End Date meTOPROLOL tartrate (LOPRESSOR) 25 mg Tablet Take 25 mg by mouth daily. lisinopril (PRINIVIL;ZESTRIL) 10 mg Tablet Take 10 mg by mouth daily. famotidine (PEPCID) 20 mg Tablet Take 20 mg by mouth daily. 06/04/2018 documented as of this encounter H&P Notes * Sesar Silvestre MD - 07/17/2016 8:10 AM EDT Patient Name: Luiasna Magdaleno Patient Age: 61 y.o. Birthdate: 1955 Admit date: 07/17/2016 Attending Physician: Epi Rees MD . Gastroenterology and Hepatology Pre-Procedure History and Physical Exam Procedure: EGD: EUS: Indication: small duodenal carcinoid nodule possible emr There is no problem list on file for this patient. EXAM: HEENT: Airway examined, oropharynx clear Per anesthesia report A/P Proceed with the planned endoscopic procedure. ASA 2 - Patient with mild systemic disease with no functional limitations Sedation Plan: anesthesia Risks and benefits of the procedure explained to the patient. Consent signed. 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 documented in this encounter Plan of Treatment Upcoming Encounters Date Type Department Care Team (Late st Contact Info) Description 12/24/2023 10:00 AM EDT Office Visit Dermatology at [address] [place] [address] Chika Waite MD [facility] [place] [address] documented as of this encounter Procedures Procedure Name Priority Date/Time Associated Diagnosis Comments SURGICAL PATHOLOGY REPORT Routine 07/17/2016 9:36 AM EDT SPECIMEN TO PATHOLOGY Routine 07/17/2016 9:36 AM EDT SPECIMEN TO PATHOLOGY Routine 07/17/2016 9:36 AM EDT EGD WITH BIOPSY (WRVU 2.39) 07/17/2016 8:14 AM EDT 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 . ?Surgical Pathology DIAGNOSIS A - Duodenum, bulb nodule, ?? biopsy: - George 's gland hyperplasia/ham artoma. B - Second portion duodenum, ?? polypectomy: - George 's gland hyperplasia. Electronically signed by: ??Ramon Lewis MD Verified: ??07/21/2016 ?Pathologist CLINICAL INFORMATION Specimen Submitted: A - Duodenal bulb nodule B - 2nd portion duodenal polyp Clinical History: History of duodenal carcinoid Clinical Diagnosis: Same SPECIMEN PROCESSING A - Labeled/Fixativ e: Duodenal bulb nodule, formalin. Quantity/Size: Numerous, 0.2 cm. Tissue Description: Farooq-pink, focally hemorrhagic soft tissues. Sections/Proces sing: (T3) B - Labeled/Fixativ e: Second portion duodenal polyp, formalin. Quantity/Size: Numerous fragments, 0.2-0.4 cm. Tissue Description: Wispy farooq-pink soft tissues and a polypoid fragment, 0.4 x 0.3 x 0.2 cm. Sections/Proces sing: The polypoid fragment is inked and sectioned submitted in B1. (T2) ??pps 07/21/2016 3:26 PM EDT [facility] GI Biopsy 07/17/2016 9:36 AM EDT 07/17/2016 9:36 AM EDT GI Biopsy 07/17/2016 9:36 AM EDT 07/17/2016 9:36 AM EDT Sesar Silvestre MD PATHOLOGY/CYTOLOGY Gary LOPEZ Performing Organization Address [facility] [place] [address] * Specimen to Pathology (surgical or derm) (07/17/2016 9:36 AM EDT) AP Specimen 07/17/2016 9:36 AM EDT 07/17/2016 9:36 AM EDT Narrative [facility] - 07/17/2016 9:36 AM EDT Specimen requisition ordered. ??Separate Pathology report to follow Sesar Silvestre MD PATHOLOGY/CYTOLOGY Gary LOPEZ Performing Organization Address [facility] [place] [address] * Specimen to Pathology (surgical or derm) (07/17/2016 9:36 AM EDT) AP Specimen 07/17/2016 9:36 AM EDT 07/17/2016 9:36 AM EDT Narrative [facility] - 07/17/2016 9:36 AM EDT Specimen requisition ordered. ??Separate Pathology report to follow Sesar Silvestre MD PATHOLOGY/CYTOLOGY Gary LOPEZ Performing Organization Address [facility] [place] [address] * UPPER GI ENDOSCOPY (07/17/2016 7:29 AM EDT) UPPER GI ENDOSCOPY [facility] Endoscopy Procedure Date: 07/17/2016 7:29 AM ? Patient Name: Luisana Magdaleno ? Date of : 1955 ? Age: 61 ? Order #: [id number] ? Instrument Name: [id number] ? Procedure: ? 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 Epi Rees MD, Salma Mckeon ? Yuly RN, Lopez Rubin RN, Sesar ? Deena Silvestre MD Referring : ?Megan Morley MD, Rk Echeverria ? MD Kimberli Medicines: ? Monitored Anesthesia Care Complications: ? No immediate complications. Procedure: ? Pre-Anesthesia Assessment: ? - Prior [...] and informed consent was obtained. ? - Patient identification and proposed ? procedure were verified prior to the ? procedure by the physician. The ? procedure was verified in the ? pre-procedure area. ? - Pre-procedure physical examination ? revealed no contraindications to ? sedation. ? - ASA Grade Assessment: II - A ? patient with mild systemic disease. ? - After reviewing the risks and ? benefits, the patient was deemed in ? satisfactory condition to undergo the ? procedure. ? - Monitored anesthesia care under the ? supervision of a FILLING SEPARATOR was determined ? to be medically necessary for this ? procedure based on patient's anxiety. ? The procedure, indications, benefits, ? risks [...] ? tolerated the procedure well. The ? upper GI endoscopy was accomplished ? without difficulty. The patient ? tolerated the procedure well. ? Findings: ? A single 4 mm sessile polyp/nodule was found in the ? second portion of the duodenum. The polyp was removed ? with a saline injection-lift technique using a hot ? snare. Resection and retrieval were complete. The ? defect post polypectomy was closed with 1 MRI ? conditional metallic clip. ? Nodular mucosa approx. 8 mm in diameter with scarring ? was found in the duodenal bulb approx. at 11'oclock ? as pictured. The boundaries were marked with cautery ? and the tip of the endosnare. Saline lift injection ? was attempted. Multiple attempts for EMR using ? Endocap technique and banding was attempted however ? there was significant amount of fibrosis and ? therefore successful banding/lifting could not be ? accomplished. Therefore this lesion was biopsied off ? multiple times with a cold forceps. ? The entire examined stomach was normal. ? The examined esophagus was normal. ? Moderate Sedation: ? See anesthesia notes. Impression: ?- A single duodenal polyp/nodule in ? the second portion. Resected and ? retrieved. ? - Focal nodular mucosa in the ? duodenal bulb at site of submucosal ? nodule seen on EUS-fibrosis limited ? ability to lift the lesion for EMR so ? instead multiple cold biopsy ? specimens taken into submucosal in ? hopes of avulsing/removing the lesion. Recommendation: ?- Discharge patient to home ? (ambulatory). ? - Resume previous diet. ? - Continue present medications. ? - Return to referring physician as ? previously scheduled. ? - Await pathology results. ? - Repeat upper endoscopy in 6-12 ? months for surveillance pending ? pathology. ? - The attending physician listed ? above was present for the entire ? procedure. ? Procedure Code(s): ?? --- Professional --- ? 54186, Esophagogastroduoden oscopy, ? flexible, transoral; with removal of ? tumor(s), polyp(s), or other ? lesion(s) by snare technique CPT copyright 2016 [employer]. All rights reserved. The codes documented in this report are preliminary and upon sail finisher hand review may be revised to meet current compliance requirements. Attending Participation: ? I was present and participated during the entire ? procedure, including non-magaña portions. ? Epi Rees MD 07/17/2016 10:06:55 AM This report has been signed electronically. Number of Addenda: 0 Note Initiated On: 07/17/2016 7:29 AM PROVATION 07/17/2016 7:29 AM EDT Megan Morley MD GENERAL SURGICAL ORD ERABLES PROVATION * UPPER EUS-ENDOSCOPIC ULTRASOUND (07/17/2016 7:28 AM EDT) UPPER ENDOSCOPIC ULTRASOUND [facility] Endoscopy Procedure Date: 07/17/2016 7:28 AM ? Patient Name: Luisana Magdaleno ? N: [id number] ? Date of : 1955 ? Age: 61 ? Order #: [id number] ? Instrument Name: [id number] ? Procedure: ? 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 Epi Rees MD, Salma Mckeon ? Yuly, RN, Lopez Rubin RN, Sesar ? Deena Silvestre MD Referring : ?Megan Morley MD, Rk Echeverria ? MD Kimberli Medicines: ? Propofol per Anesthesia Complications: ? No immediate complications. Procedure: ? Pre-Anesthesia Assessment: ? - Prior [...] necessary for this procedure based on ? complex procedure (ERCP, EUS). ? The procedure, indications, benefits, ? risks and alternatives were explained ? to the patient. Specifically ? discussed were potential ? complications including, but not ? limited to, bleeding, perforation, ? infection, missing a cancer, and ? adverse medication reactions.The ? Endosonoscope was introduced through ? the mouth, and advanced to the second ? part of duodenum. The patient ? tolerated the procedure well. ? Findings: ? Endoscopic exam: see EGD report. Subtle 8 mm nodule ? in proximal bulb and 2nd 4 mm polyp in 2nd portion ? opposite wall from ampulla. ? Endosonographic Finding : ? An oval intramural (subepithelial) lesion was found ? in the duodenal bulb. The lesion was hypoechoic. ? Endosonographically, the lesion appeared to originate ? from within the submucosa (Layer 3). The lesion also ? measured 4 mm in diameter. The outer margins were ? well defined. The 2nd small nodule in 2nd portion was ? not well seen by EUS. ? There was no sign of significant endosonographic ? abnormality in the common bile duct. The maximum ? diameter of the duct was 4 mm. ? Multiple stones were visualized endosonographically ? in the gallbladder body. They were hyperechoic and ? characterized by shadowing. ? Normal visualized portion of liver (limited exam). ? There was no sign of significant endosonographic ? abnormality in the entire pancreas. ? No lymphadenopathy seen. ? Moderate Sedation: ? See anesthesia notes. Impression: ?- A small 4 mm intramural ? (subepithelial) lesion was found in ? the duodenal bulb. The lesion ? appeared to originate from within the ? submucosa (Layer 3). ? The 2nd small nodule in 2nd portion ? was not well seen by EUS. ? - Gallbladder stones. Recommendation: ?- EGD and possible EMR today. ? - The attending physician listed ? above was present for the entire ? procedure. ? Attending Participation: ? I was present and participated during the entire ? procedure, including non-magaña portions. ? Epi Rees MD 07/17/2016 10:49:10 AM This report has been signed electronically. Number of Addenda: 0 Note Initiated On: 07/17/2016 7:28 AM PROVATION 07/17/2016 7:28 AM EDT Megan Morley MD GENERAL SURGICAL ORD ERABLES PROVATION documented in this encounter Visit Diagnoses Not on filedocumented in this encounter Administered Medications Inactive Administered Medications - up to 3 most recent administrations Medication Order MAR Action Action Date Dose Rate Site sodium chloride 0.9 % flush 5-20 mL 5-20 mL, Intravenous, EVERY 1 MIN PRN, Starting on Lucretia 07/17/16 at 0737, Until Lucretia 07/17/16 at 1255, flush, Flush pertains to all indwelling lines. Flush per protocol found in the job aid using the link provided on this medication record., Routine documented in this encounter Active and Recently Administered Medications Times are shown in EDT. Continuous Medication Order 07/15/2016 07/16/2016 07/17/2016 lactated Ringers infusion (CANCELED) 30 mL/hr, Intravenous, CONTINUOUS, Starting on Lucretia 07/17/16 at 0800, Until Lucretia 07/17/16 at 1034, Endoscopy (Day of Procedure) 0814 (New Bag - Prov ider: Maria Tabares CRNA)0910 (Anesthesia Volume Adjustment - Provider: Maria Tabares CRNA) PRN Medication Order 07/15/2016 07/16/2016 07/17/2016 sodium chloride 0.9 % flush 5-20 mL 5-20 mL, Intravenous, EVERY 1 MIN PRN, Starting on Lucretia 07/17/16 at 0737, Until Lucretia 07/17/16 at 1255, flush, Flush pertains to all indwelling lines. Flush per protocol found in the job aid using the link provided on this medication record., Routine documented in this encounter Care Teams Molding Press Operator Relationship Specialty Start Date End Date Megan Morley MD [address] [place] [address] PCP - General Family Medicine 07/17/16 05/19/18 documented as of this encounter
--- OUTSIDE RECORDS SUMMARY | 2023-12-21 16:48 | XMS_ITS | Encounter Summary ---
Author Organization [facility] Address [facility] [place] [address] Care Team Providers Care Bowling Alley Refinisher Name Role Phone Megan Morley MD Primary Care Provider [phone] Reason for Visit * Auth/Cert Specialty Diagnoses / Procedures Referred By Ara dailey Referred To Contact Diagnoses 1 yr surv from 07/17/16 Procedures PRO UPPER GI ENDOSCOPY, DIAGNOSTIC EGD, UPPER GI ENDOSCOPY Referral ID Status Reason Start Date Expiration Date Visits Re quested Visits Authorized [id number] 1 1 Encounter Details Date Type Department Care Team (Latest Contact Info) Description 09/15/2017 9:33 AM EDT - 09/15/2017 12:24 PM EDT Hospital Encounter [place] [address] pEi Rees MD [facility] [place] [address] Discharge Disposition: Home Social History Tobacco Use [...] - 09/15/2017 11:52 AM EDT Please call [phone] before 8pm Mon-Fri with problems, questions or concerns. If you call after 8pm or on weekends, call the Hospital at [phone] and ask to speak to the Painter Touch Up sales and operations trainee and the electrical discharge machine operator will contact that person for [...] better as expected. Thursday-Thursday Same Day Endo [phone] 7a-8p Otherwise contact [phone] and ask to speak to the technical product manager sales and operations trainee Follow-up care is a magaña part of [...] Rees MD - 09/15/2017 11:59 AM EDT [facility] [place] Patient Name: Luisaan Magdaleno : [id number] MR#: [id number] Case Date: 09/15/2017 Surgeon: Surgeon(s) and Role: [...] 10:00 AM EDT Office Visit Dermatology at [address] [address] Chika Waite MD [facility] DR JAZMIN [place] [address] documented as of this encounter Procedures Procedure Name Priority Date/Time Associated Diagnosis Comments UPPER GI ENDOSCOPY Routine 09/15/2017 11 :34 AM EDT EGD, UPPER GI ENDOSCOPY (WRVU 2.09) 09/15/2017 11:33 AM EDT 1 yr surv from 07/17/16 documented in this encounter Results * UPPER GI ENDOSCOPY (09/15/2017 11:34 AM EDT) [facility] UPPER GI ENDOSCOPY [facility] Endoscopy ___ Procedure Date: 09/15/2017 11:34 AM ? Patient Name: Luisana Magdaleno ? Date of : 1955 ? Age: 62 ? Order #: [id number] ? Instrument Name: [id number] ? ___ Procedure: ? Upper GI endoscopy Indications: ? f/up duodenal polyps and possible ? microcarcinoid Providers: ? Epi Rees MD, Lopez Rubin, ? Hilda STEPHENS, Card Punching Machine Operator Referring MD: ?Megan Morley MD Medicines: ? [...] CRNA) documented in this encounter Care Teams Bowling Alley Refinisher Relationship Specialty Start Date End Date Megan Morley MD [address] [place] [address] PCP - General Family Medicine 07/17/16 05/19/18 documented as of this encounter
--- OUTSIDE RECORDS SUMMARY | 2023-12-21 16:48 | XMS_ITS | Encounter Summary ---
Author Organization Formerly [facility] Address [facility] [place] [address] Care Team Providers Care Export Freight Manager Name Role Phone Megan Morley MD Primary Care Provider Encounter Details Date Type Department Care Team (Late st Contact Info) Description 07/17/2016 8:14 AM EDT Anesthesia Event [place] [address] Leana Puri MD [facility] [place] [address] Maria Tabares CRNA [facility] [place] [address] Anesthesia Record Procedure Summary Procedure Name Responsible Anesthesiologist Anesthesia Start Time Anesthesia Stop Time UPPER EUS- ENDOSCOPIC ULTRASOUND (WRVU 3.47) (Trunk) Leana Puri MD 07/17/16 0814 07/17/16 0938 Events Date Time Event Comment 07/17/2016 0814 AN Verify 0814 Start 0814 An Start Data 0817 An Induction 0818 Anesthesia Ready 0824 An Data Art Pt bending her arm during cuff inflation 0922 Break/Relief In [facility], DEVENST, PAPER SALES MANAGER 0930 an stop data 0937 Recovery or ICU Handoff Lili ent care was transferred to the destination unit staff after review of the patient's medical history, current anesthetic/surgical status and plan, according to the Provider Handoff Checklist. 0938 Stop 0959 Meds Name Total IV Lidocaine 100 mg Propofol 200 mg Propofol INF 319.93 mg Glycopyrrolate 0.2 mg lactated Ringers infusion 500 mL * Agents Name O2 * Blood No blood administrations on file. Lines, Drains, and Airways Type Details Placement Removal (RETIRED) Peripheral IV Line - Single Lumen 07/17/16; 0747; basilic vein (medial side of arm), right; [id number]-[id number] catheter system; 07/17/16; 1034 07/17/16 0747 by Tao Williamson RN 07/17/16 1034 by Tao Williamson RN documented in this encounter Social History Tobacco Use Types Packs/Day Years Used Date Smoking Tobacco: Never Alcohol Use Standard Drinks/Week Comments Yes 0 (1 standard drink = 0.6 oz pur e alcohol) glass of wine 3 times a week. Sex and Gender Information Value Date Recorded Sex Assigned at Not on file Gender Identity Not on file Sexual Orientation Not on file documented as of this encounter OR Notes * Anesthesia Postprocedure Evaluation - Leana Puri MD - 07/17/2016 11:[address] [facility] Department of Anesthesiology Post-procedure Note Patient: Luisana Sullivan Procedure Summary Date Anesthesia Start Anesthesia Stop Room / Location 07/17/16 0814 0938 [facility] ENDO 3 / [facility] ENDOSCOPY Procedure Diagnosis Surgeon Responsible Provider UPPER EUS- ENDOSCOPIC ULTRASOUND (N/A Trunk); EGD WITH BIOPSY (WRVU 2.49) (N/A ) (neuroendocrine tumor in first part of duodenum) Epi Rees MD Chiang, Laura M, MD All Anesthesia Providers: Anesthesiologist: Leana Puri MD PAPER SALES MANAGER: Maria Tabares CRNA Last (1hr) Vitals: Please see vitals flowsheet BP Temp Pulse Resp SpO2 Patient Location: PACU/SDP Level of Consciousness: Conscious but Sleepy Pain Management: Satisfactory Analgesia PONV: None Cardiovascular Status: At Baseline and Hemodynamically Stable Respiratory Status: Stable Respiratory Status and Supplemental O2 (NC or FM) Postoperative Fluid Status: Intravascular EUvolemia Possible Anesthetic Complications: NONE apparent at time of evaluation Final Primary Anesthesia Type: MAC (The anesthetic type performed was the same as planned.) Comments: Leana Puri MD * Anesthesia Preprocedure Evaluation - Leana Puri MD - 07/17/2016 7:29 AM EDT Pre-Anesthesia Evaluation for: Luisana Sullivan a 61 y.o. female. Procedure(s): EGD, UPPER GI ENDOSCOPY UPPER EUS- ENDOSCOPIC ULTRASOUND Allergies not on file Medications: MAR and/or home medications have been reviewed. Physical Exam: There were no vitals filed for this visit. There is no height or weight on file to calculate BMI. Anesthesia Physical Exam Anesthesia Plan: ASA 2 general, with a(n) intravenous induction Region - Other Informed Consent: PAT Staff Note Attending Note: PRELIMINARY NOTE - Based upon chart review Luisana Sullivan is a 61 y.o. female who presents for the above procedure in the setting of a neuroendocrine tumor of the duodenum. Past medical history was reviewed and is significant for: - HTN - GERD Anesthestic PMH: NPO: Appropriate-- ROS positive for: METS: Cardiac: Labs: No results for input(s): ABORH in the last 7068 hours. Anesthestic Plan: Plan GETA, standard ASA monitors, PIV after discussion of benefits, indications, and risks (including but not limited to sore throat, dental injury, prolonged intubation, cardiac or neurologic event). Leana Puri MD documented in this encounter Plan of Treatment Upcoming Encounters Date Type Department Care Team (Late st Contact Info) Description 12/24/2023 10:00 AM EDT Office Visit Dermatology at [facility] [address] [place] [address] Chika Waite MD [facility] [address] [place]AZ[place] [address] documented as of this encounter Visit Diagnoses Not on filedocumented in this encounter Administered Medications Inactive Administered Medications - up to 3 most recent administrations Medication Order MAR Action Action Date Dose Rate Site glycopyrrolate (ROBINUL) multi-dose injection PRN, Starting on Lucretia 07/17/16 at 0819, Until Lucretia 07/17/16 at 0939, Anesthesia Intra-op, Routine Given 07/17/2016 8:19 AM EDT 0.2 mg lactated Ringers infusion 30 mL/hr, Intravenous, CONTINUOUS, Starting on Lucretia 07/17/16 at 0800, Until Lucretia 07/17/16 at 1034, Endoscopy (Day of Procedure) New Bag 07/17/2016 8:14 AM EDT lidocaine (PF) (XYLOCAINE) 100 mg/5 mL (2 %) injection PRN, Starting on Lucretia 07/17/16 at 0817, Until Lucretia 07/17/16 at 0939, Anesthesia Intra-op, Routine Given 07/17/2016 8:17 AM EDT 100 mg propofol (DIPRIVAN) 10 mg/mL bolus injection (Anesthesia) PRN, Starting on Lucretia 07/17/16 at 0817, Until Lucretia 07/17/16 at 0939, Anesthesia Intra-op Given 07/17/2016 8:39 AM EDT 30 mg Given 07/17/2016 8:28 AM EDT 20 mg Given 07/17/2016 8:23 AM EDT 20 mg propofol (DIPRIVAN) infusion CONTINUOUS PRN, Starting on Lucretia 07/17/16 at 0819, Until Lucretia 07/17/16 at 0939, Anesthesia Intra-op, Routine Rate/Dose Change 07/17/2016 8:24 AM EDT 90 mcg/kg/min 28.9 mL/hr New Bag 07/17/2016 8:19 AM EDT 80 mcg/kg/min 25.7 mL/hr documented in this encounter Care Teams Export Freight Manager Relationship Specialty Start Date End Date Megan Morley MD [address] [place] [address] PCP - General Family Medicine 07/17/16 05/19/18 documented as of this encounter
--- OUTSIDE RECORDS SUMMARY | 2023-12-21 16:48 | XMS_ITS | Encounter Summary ---
Author Organization Count Includes [facility] Address [facility] [place] [address] Care Team Providers Care Infection Control Preventionist Name Role Phone Megan Morley MD Primary Care Provider [phone] Encounter Details Date Type Department Care Team (Late st Contact Info) Description 07/17/2016 8:00 AM EDT - 07/17/2016 9:00 AM EDT Surgery [place] [address] Epi Rees MD [facility] [place] [address] UPPER EUS- ENDOSCOPIC ULTRASOUND (WRVU 3.47) Social History Tobacco Use Types Packs/Day Years [...] Sign Reading Time Taken Comments Blood Pressure 133/83 07/17/2016 7:40 AM EDT Pulse 83 07/17/2016 7:40 AM EDT Temperature - - Respiratory Rate 18 07/17/2016 7:40 AM EDT Oxygen Saturation 96% 07/17/2016 7:40 AM EDT Inhaled Oxygen Concentration - - [...] test. You may use ice chips, popsicles, tekw-amk-[id number] throat lozenges or sprays that may help [...] better as expected Thursday-Thursday Same Day Endo [phone] 7a-8p Otherwise contact [phone] and ask to speak to the standards engineer cash applications representative The patient reports understanding discharge instructions UPPER [...] better as expected. Thursday-Thursday Same Day Endo [phone] 7a-8p Otherwise contact [phone] and ask to speak to the standards engineer cash applications representative Follow-up care is a magaña part of [...] - 07/17/2016 8:10 AM EDT Patient Name: Luisana Magdaleno Patient Age: 61 y.o. Birthdate: 1955 [...] Rees MD - 07/17/2016 10:50 AM EDT [facility] [place] Patient Name: Luisana Magdaleno : [id number] MR#: [id number] Case Date: 07/17/2016 Surgeon: Surgeon(s) and Role: [...] 10:00 AM EDT Office Visit Dermatology at [address] [address] Chika Waite MD [facility] [place] [address] documented as of this encounter Procedures Procedure [...] Report (07/17/2016 9:36 AM EDT) Final Diagnosis [id number] ?Location: 4T; EA06; A The signing pathologist [...] B1. (T2) ??pps 07/21/2016 3:26 PM EDT [facility] GI Biopsy 07/17/2016 9:36 AM EDT 07/17/2016 9:36 AM EDT GI Biopsy 07/17/2016 9:36 AM EDT 07/17/2016 9:36 AM EDT Sesar Silvestre MD PATHOLOGY/CYTOLOGY O JESSICA Performing Organization Address [facility] [place] [address] * Specimen to Pathology (surgical or derm) (07/17/2016 9:36 AM EDT) AP Specimen 07/17/2016 9:36 AM EDT 07/17/2016 9:36 AM EDT Narrative [facility] - 07/17/2016 9:36 AM EDT Specimen requisition ordered. ??Separate Pathology report to follow Sesar Silvestre MD PATHOLOGY/CYTOLOGY Gary LOPEZ Performing Organization Address [facility] [place] [address] * Specimen to Pathology (surgical or derm) (07/17/2016 9:36 AM EDT) AP Specimen 07/17/2016 9:36 AM EDT 07/17/2016 9:36 AM EDT Narrative [facility] - 07/17/2016 9:36 AM EDT Specimen requisition ordered. ??Separate Pathology report to follow Sesar Silvestre MD PATHOLOGY/CYTOLOGY Gary LOPEZ Performing Organization Address [facility] [place] [address] * UPPER GI ENDOSCOPY (07/17/2016 7:29 AM EDT) UPPER GI ENDOSCOPY [facility] Endoscopy Procedure Date: 07/17/2016 7:29 AM ? Patient Name: Luisana Magdaleno ? Date of : 1955 ? Age: 61 ? Order #: [id number] ? Instrument Name: [id number] ? Procedure: ? Upper GI endoscopy Indications: [...] care under the ? supervision of a PRINT BUYER was determined ? to be medically necessary [...] Procedure Code(s): ?? --- Professional --- ? 05702, Esophagogastroduoden oscopy, ? flexible, transoral; with removal of ? tumor(s), polyp(s), or other ? lesion(s) by snare technique CPT copyright 2016 [employer]. All rights reserved. The codes documented in this report are preliminary and upon client services administrator review may be revised to meet current [...] (07/17/2016 7:28 AM EDT) UPPER ENDOSCOPIC ULTRASOUND [facility] Endoscopy Procedure Date: 07/17/2016 7:28 AM ? Patient Name: Luisana Juanjordanstacy ? N: [id number] ? Date of : 1955 ? Age: 61 ? Order #: [id number] ? Instrument Name: [id number] ? Procedure: ? Upper EUS Indications: ? [...] Routine documented in this encounter Care Teams Infection Control Preventionist Relationship Specialty Start Date End Date Megan Morley MD [address] [place] [address] PCP - General Family Medicine 07/17/16 05/19/18 documented as of this encounter
--- OUTSIDE RECORDS SUMMARY | 2023-12-21 16:48 | XMS_ITS | Encounter Summary ---
Author Organization [facility] Address [facility] [place] [address] Care Team Providers Care Sales And Marketing Representative Name Role Phone Sobeida Morgan APRN Primary Care Provider [phone] Reason for Visit * Reason Comments Skin Lesion Nose * Consultation (Routine) - Closed Specialty Diagnoses / Procedures Referred By Ara dailey Referred To Contact Dermatology Diagnoses Lesion on tip of her nose Janene Bolden APRN [address] [place] [address] [facility] Dermatology [address] [place] [address] Referral ID Status Reason Start Date Expiration Date V isits Requested Visits Authorized [id number] Closed Consult, Test & Treat Connection Center 05/20/2018 05/20/2019 1 1 Encounter Details Date Type Department Care Team (Late st Contact Info) Description 06/04/2018 9:30 AM EDT Office Visit Dermatology at [facility] [address] [place] [address] Kezia Real MD [facility] [place] [address] [place] (actinic keratosis); Telangiectasia Social History Tobacco Use Types Packs/Day Years [...] this encounter Patient Instructions * Patient Instructions* Clair Strickland CCMA - 06/04/2018 9:30 AM EDT Actinic Keratoses Diagnosis: You have been [...] to flake off. This treatment can be uncomfortable, but discomfort should subside after a couple of hours. The area treated will look red and irritated, and it may blister up or turn dark, then fall off. Thisis normal. Wound care: You do not need [...] to 5pm), please call the clinic at [phone]. After 5pm, and on weekends and holidays, please call the hospital at [phone] and ask for the Security Police Officer Chlorine Plant Operator. documented in this encounter Progress Notes * Kezia Real MD - 06/04/2018 9:30 AM EDT DERMATOLOGY ESTABLISHED PATIENT CLINIC NOTE Date of service: 06/04/2018 Luisana Sullivan : 1955 Provider: Kezia Real MD Chief Complaint Patient presents with ??? Skin Lesion SKIN HX: Skin cancer: No Skin disease: No Other: - Seborrheic keratoses, some inflamed - Conteh angiomas Family Skin History: Melanoma: No NMSC: Mother, brother Social History: Occupation: head teacher Marital status: Children: 2 Lives in [place], [place] Patient Preferences: Preferred name: Luisana Preferred contact method with results: Cell phone HPI Luisana Sullivan is a 63 y.o. female, established patient last seen by Dr. Angel on 10/20/16;new to me. Here today for a focused exam of her nose. Patient is concerned about a lesion on her nasal tip, which first became problematic last summer. The flaking stopped approximately 1.5 months ago, and patient says she now has a small, pink lesion at the site. She denies pain, tenderness, itching and bleeding. She pointed this out to her PCP, her referred her to dermatology for evaluation. MEDS: Current Outpatient Medications Medication Sig Dispense Refill ??? omeprazole (PRILOSEC) 20 mg Capsule, Delayed Release(E.C.) Take 20 mg by mouth daily. ??? lisinopril (PRINIVIL;ZESTRIL) 10 mg Tablet Take 10 mg by mouth daily. ??? meTOPROLOL tartrate (LOPRESSOR) 25 mg Tablet Take 25 mg by mouth daily. No current facility-administered medications for this visit. ADR: No Known Allergies ROS: General: feeling well Skin: denies other skin complaints EXAM: General: NAD, pleasant, cooperative Skin: A focused skin examination of the nose was normal with the exception of the findings listed below. Significant Skin Findings: A. Supra nasal tip: Small blood vessels that range between 0.5-1 mm. B. Right nasal tip x 1: 0.2-0.3 cm scaly/hyperkeratotic irregular pink papule. ASSESSMENT/PLAN: A. Telangiectasia - Rosacea variant; discussed benign nature of lesion and provided reassurance. - Briefly discussed treating cosmetically with V-Beam if numerous and/or bothersome to patient. Patient is aware that this is considered a cosmetic procedure and not covered by insurance. - No treatment necessary at this time. B. Actinic Keratosis - Explained etiology, natural history and premalignent potential of these lesions. - Discussed treatment options (LN2, 5-FU, PDT) and their respective risks and benefits. - Patient elects to proceed with cryotherapy today. ?? Procedure: Destruction of lesion(s) with cryotherapy (LN2). Location(s): As noted above. Number: 1 Discussed procedure and expectations, including risks (especially hypopigmentation) and benefits. Verbal consent obtained. Frozen with LN2, 15-30 second thaw time, twice. There were no complications;patient tolerated the procedure well. Post-procedure expectations and wound care reviewed. - Instructed patient to return to clinic for re-evaluation if lesion does not resolve with this treatment as expected. - Emphasized importance of sun protection, particularly while lesion heals, to avoid hypopigmentation. Follow up: RTC in 1 year for a follow up/full skin exam; sooner if needed. Reminder placed in system to schedule. Instructed patient to call with questions or concerns. I am documenting this encounter acting as the scribe for and in the presence of Dr. Real: Clair Strickland CMA I performed the above scribed service and agree with the accuracy of the documentation in this encounter. Kezia Real MD Welding Setter of Dermatology Department of Surgery [facility] documented in this encounter Plan of Treatment Upcoming Encounters Date Type Department Care Team (Late st Contact Info) Description 12/24/2023 10:00 AM EDT Office Visit Dermatology at [facility] [address] [place] [address] Chika Waite MD [facility] [address] JAZMIN [place] [address] documented as of this encounter Visit Diagnoses Diagnosis AK (actinic keratosis) Actinic keratosis Telangiectasia Other and unspecified capillary diseases documented in this encounter Care Teams Sales And Marketing Representative Relationship Specialty Start Date End Date Sobeida Morgan, COGNOS ARCHITECT [address] [place] [address] PCP - General Family Medicine 05/20/18 documented as of this encounter
--- OUTSIDE RECORDS SUMMARY | 2023-12-21 16:48 | XMS_ITS | Encounter Summary ---
Author Organization [facility] Address [place] [address] Care Team Providers Care Science Analyst Name Role Phone Megan Morley MD Primary Care Provider [phone] Reason for Visit * Auth/Cert Specialty Diagnoses / Procedures Referred By Contac t Referred To Contact Diagnoses 1 yr surv from 07/17/16 Procedures PRO UPPER GI ENDOSCOPY, DIAGNOSTIC EGD, UPPER GI ENDOSCOPY Referral ID Status Reason Start Date Expiration Date Visits Re quested Visits Authorized [id number] 1 1 Encounter Details Date Type Department Care Team (Late st Contact Info) Description 09/15/2017 11:32 AM EDT Anesthesia Event [place] [address] Trish Sharif MD [facility] DR [place] [address] Dwayne Rodriguez, [facility] [address] [place] [address] Anesthesia Record Procedure Summary Procedure Name Responsible Anesthesiologist Anesthesia Start Time Anesthesia Stop Time EGD, UPPER GI ENDOSCOPY (WRVU 2.09) (Trunk) Trish Sharif MD 09/15/17 1132 09/15/17 1147 Events Date Time Event Comment 09/15/2017 1030 1132 AN Verify 1132 Start 1132 An Start Data 1133 An Induction 1134 Anesthesia Ready 1145 an stop data 1147 Recovery or ICU Handoff Lili ent care was transferred to the destination unit staff after review of the patient's medical history, current anesthetic/surgical status and plan, according to the Provider Handoff Checklist. 1147 Stop Meds Name Total Propofol 50 mg Propofol INF 70.88 mg lactated Ringers infusion 400 mL * Agents Name O2 Air N2O O2 Auxiliary Flowmeter 1 * Blood No blood administrations on file. Lines, Drains, and Airways Type Details Placement Removal (RETIRED) Peripheral IV Line - Single Lumen 09/15/17; 1010; median cubital vein (antecubital fossa), right; [id number]-[id number] catheter system; 20 gauge; Jonny Waite RN; distraction, intradermal injection; 09/15/17; 1213 09/15/17 1010 by Lucinda Hill RN 09/15/17 1213 by Mayela Hassan RN documented in this encounter Social History [...] OR Notes * Anesthesia Postprocedure Evaluation - Trish Sharif MD - 09/16/2017 12:31 PM EDT [facility] Department of Anesthesiology Post-procedure Note Patient: Luisana Sullivan Procedure Summary Date Anesthesia Start Anesthesia Stop Room / Location 09/15/17 1132 1147 [facility] ENDO 3 / [facility] ENDOSCOPY Procedure Diagnosis Surgeon Responsible Provider EGD, UPPER GI ENDOSCOPY (N/A Trunk) (1 yr surv from 07/17/16) Epi Rees MD Koff, Matthew D, MD All Anesthesia Providers: Anesthesiologist: Trish Sharif MD LEAD NURSE: Dwayne Rodriguez CRNA Most Recent Vitals: 09/15/17 1210 BP: 124/73 Pulse: Resp: 18 SpO2: 99% Pain Patient Location: PACU/SD Level of Consciousness: Awake and Alert Pain Management: Satisfactory Analgesia PONV: None Cardiovascular Status: At Baseline and Hemodynamically Stable Respiratory Status: At Baseline and Room Air Postoperative Fluid Status: Intravascular EUvolemia Possible Anesthetic Complications: NONE apparent at time of evaluation Final Primary Anesthesia Type: MAC (The anesthetic type performed was the same as planned.) Comments: TRISH SHARIF MD * Anesthesia Preprocedure Evaluation - Trish Sharif MD - 09/15/2017 10:29 AM EDT Pre-Anesthesia Evaluation for: Luisana DixonJasminSteve a 62 y.o. female. Procedure(s): EGD, UPPER GI ENDOSCOPY There are no active problems to display for this patient. No past medical history on file. Past Surgical History: Procedure Laterality Date ??? PRO ENDOSCOPIC US EXAM, ESOPH N/A 07/17/2016 UPPER EUS- ENDOSCOPIC ULTRASOUND performed by Epi Rees MD at [facility] ENDOSCOPY ??? PRO UPPER GI ENDOSCOPY, BIOPSY N/A 07/17/2016 EGD WITH BIOPSY (WRVU 2.49) performed by Epi Rees MD at [facility] ENDOSCOPY Social History Substance Use Topics ??? Smoking status: Never Smoker ??? Smokeless tobacco: Never Used ??? Alcohol use 1.8 oz/week 3 Glasses of wine per week Comment: glass of wine 3 times a week. History Drug Use No No Known Allergies Medications: MAR and/or home medications have been reviewed. Physical Exam: Most Recent Vitals: 09/15/17 1006 BP: (!) 142/91 Pulse: 70 Resp: 16 SpO2: 98% Body mass index is 21.46 kg/(m^2). Height: 162.6 cm (5' 4) Weight: 56.7 kg (125 lb) Airway Assessment: Mallampati: II TM distance: <3 FB Neck ROM: full Cardiovascular Assessment: cardiovascular exam normal Pulmonary Assessment: pulmonary exam normal Dental Assessment: - normal exam Misc Assessment: Patient is wearing No contact(s). IV access: Peripheral line Anesthesia Plan: ASA 2 with a(n) intravenous induction Region - Other Informed Consent: Anesthetic plan and risks discussed with patient. Plan discussed with LEAD NURSE. PAT Staff Note documented in this encounter Plan of Treatment Upcoming Encounters Date Type Department Care Team (Late st Contact Info) Description 12/24/2023 10:00 AM EDT Office Visit Dermatology at [facility] [address] [place] [address] Chika Waite MD [facility] [address] JAZMIN [place] [address] documented as of this encounter Visit Diagnoses [...] 10:10 AM EDT 100 mL/hr 100 mL/hr propofol (DIPRIVAN) 10 mg/mL bolus injection (Anesthesia) PRN, Starting on Thu09/15/17 at 1138, Until Thu09/15/17 at 1147, Anesthesia Intra-op Given 09/15/2017 11:38 AM EDT 50 mg propofol (DIPRIVAN) infusion CONTINUOUS PRN, Starting on Thu09/15/17 at 1138, Until Thu09/15/17 at 1147, Anesthesia Intra-op, Routine New Bag 09/15/2017 11:38 AM EDT 250 mcg/kg/min 85.1 mL/hr documented in this encounter Care Teams Science Analyst Relationship Specialty Start Date End Date Megan Morley MD [address] [place] [address] PCP - General Family Medicine 07/17/16 05/19/18 documented as of this encounter
--- OUTSIDE RECORDS SUMMARY | 2023-12-21 16:49 | XMS_ITS | Encounter Summary ---
Author Organization [facility] Address [facility] [place] [address] Care Team Providers Care Director Auto Name Role Phone Lea Courtney JORDEN Primary Care Provider [phone] Encounter Details Date Type Department Care Team (Latest Contact Info) Description 07/03/2016 2:34 PM EDT - 07/03/2016 11:59 PM EDT [place] [id number] Discharge Disposition: Home Social History Tobacco Use Types Packs/Day Years Used Date Smoking Tobacco: Never Assessed Sex and Gender Information Value Date Recorded Sex Assigned at Not on file Gender Identity Not on file Sexual Orientation Not on file documented as of this encounter Plan of Treatment Upcoming Encounters Date Type Department Care Team (Late st Contact Info) Description 12/24/2023 10:00 AM EDT Office Visit Dermatology at [facility] [address] [place] [address] Chika Waite MD [facility] [place] [address] documented as of this encounter Procedures Procedure Name Priority Date/Time Associated Diagnosis Comments SURGICAL PATHOLOGY REPORT Routine 07/03/2016 2:59 PM EDT documented in this encounter Results * Surgical Pathology Report (07/03/2016 2:59 PM EDT) Final Diagnosis [id number] ?Location: [facility]W The signing pathologist has (i) examined the relevant preparation(s) for the specimen(s) and (ii) rendered or confirmed the diagnosis(es). . ?Surgical Pathology DIAGNOSIS CONSULTATION CASE A - Outside slide(s) labeled [id number], collection date 05/27/2016. (1) - Stomach, antrum, biopsy: Gastric antral gland mucosa with nonspecific reactive gastropathy. No H. pylori-like microorganism is seen. (2) - Stomach, body, biopsy: Gastric fundic mucosa within normal limits. (3) - Esophagus, distal, biopsy: Squamocolumnar junctional mucosa (cardia type) with mild chronic inflammation, focal multilayer epithelium and squamous mucosa reflux-type changes. There is no evidence of intestinal metaplasia. (4) - Esophagus, proximal, biopsy: Esophageal squamous mucosa within normal limits. (5) - Small intestine, duodenum, lesion, biopsy: Duodenal mucosa with micronodular neuroendocrine cell proliferation (best seen on the synaptophysin immunostain), suspicious for ?well differentiated neuroendocrine tumor (carcinoid), ??see Discussion. B - Outside slide(s) labeled [id number], collection date 06/18/2016. Duodenum, first portion, lesion, ?? biopsy: Duodenal mucosa with micronodular neuroendocrine cell proliferation,see Discussion. Duodenal mucosa with foveolar metaplasia and George ?? 's gland hyperplasia consistent with peptic-type duodenitis. Electronically signed by: ??Rachael Puga MD Verified: ??07/05/2016 ?Pathologist DISCUSSION The duodenal biopsies in both parts A and B show ?micronodular neuroendocrine cell proliferation, the possibility of the biopsies representing a ? well differentiated neuroendocrine tumor (carcinoid) in duodenum can not be excluded. Clinical and endoscopical correlations are suggested. No mitosis is seen. ADDITIONAL STUDIES Whole slide scan: [id number] CLINICAL INFORMATION Specimen Submitted: CONSULTATION CASE A - 7 slide(s) labeled [id number], collection date 05/27/2016. B - 4 slide(s) labeled [id number], collection date 06/18/2016. [id number] Report to: [facility] . CLINICAL INFORMATION Surgical Pathology Department [facility], [address], [address] Floor [address] [place], [place] ??[address] SPECIMEN PROCESSING [facility] ([facility]) pathology slide(s) are reviewed. ??Refer to Diagnosis and Specimen Submitted for specific case information. For the full text of the [facility] report(s) please refer to Non-DH Documentation Pathology in the electronic health record (eDH). 07/05/2016 4:[address] [facility] Consult Case 07/03/2016 2:59 PM EDT 07/03/2016 2:59 PM EDT Consult Case 07/03/2016 2:59 PM EDT 07/03/2016 2:59 PM EDT Epi Rees MD PATHOLOGY/CYTOLOGY O RDERABLES Performing Organization Address City/State/[facility] Co de Phone Number [facility] [place] [phone] documented in this encounter Visit Diagnoses Not on filedocumented in this encounter Care Teams Director Auto Relationship Specialty Start Date End Date Lea Courtney APRN [address] [place] [address] PCP - General 10/09/12 07/06/16 documented as of this encounter
--- OUTSIDE RECORDS SUMMARY | 2023-12-21 16:49 | XMS_ITS | Encounter Summary ---
Author Organization [facility] [place] Address [facility] [place] [address] Care Team Providers Care Greenhouse Florist Name Role Phone Lea Courtney APRN Primary Care Provider [phone] Encounter Details Date Type Department Care Team (Late st Contact Info) Description 07/03/2016 External [place] [phone] Provider, Scanning Social History Tobacco Use Types Packs/Day Years [...] 10:00 AM EDT Office Visit Dermatology at [facility] [address] [place] [address] [facility] [place] [address] documented as of this encounter Procedures Procedure Name Priority Date/Time Associated Diagnosis Comments SURGICAL PATHOLOGY SCAN Routine 07/03/2016 documented in this encounter Results * Scan Doc: Surgical Pathology (07/03/2016) Epi Rees MD MEDIA MGR SCAN EXT O RDR/RSLT documented in this encounter Visit Diagnoses Not on filedocumented in this encounter Care Teams Greenhouse Florist Relationship Specialty Start Date End Date Lea Courtney APRN [address] [place] [address] PCP - General 10/09/12 07/06/16 documented as of this encounter
--- OUTSIDE RECORDS SUMMARY | 2023-12-21 16:49 | XMS_ITS | Encounter Summary ---
Author Organization [facility] Address [facility] [place] [address] Care Team Providers Care Equipment Service Lead Name Role Phone Lea Courtney APRN Primary Care Provider [phone] Encounter Details Date Type Department Care Team (Late st Contact Info) Description 07/03/2016 External [place] [phone] Provider, Scanning Social History Tobacco Use Types [...] 10:00 AM EDT Office Visit Dermatology at [facility] [address] [place] [address] Chika Waite MD [facility] [place] [address] documented as of this encounter Visit Diagnoses Not on filedocumented in this encounter Care Teams Equipment Service Lead Relationship Specialty Start Date End Date Lea Courtney APRN [address] [place] [address] PCP - General 10/09/12 07/06/16 documented as of this encounter
== END 2023-12-21 16:48 | disposition home or self-care (01) ==
LOC: NCHCN 16:47
PROVIDERS: PCP Nurse Practitioner Family; Visit Provider Nurse Practitioner Family
DX: R81 Glycosuria (principal)
CPT/HCPCS: 83036

== ENCOUNTER 2024-01-15 00:21 | Outpatient (CLI) | payer MEDICARE, BC, SELFPAY ==
--- OUTSIDE RECORDS SUMMARY | 2024-01-15 00:22 | XMS_ITS | Encounter Summary ---
Author Organization [facility] [place] [address] Care Team Providers Care Parent Aide Name Role Phone Sobeida Morgan APRN Primary Care Provider [phone] Encounter Details Date Type Department Care Team (Latest Contact Info) Description 12/24/2023 Travel Social History Tobacco Use Types Packs/Day Years [...] as of this encounter Plan of Treatment Not on file documented as of this encounter Visit Diagnoses Not on filedocumented in this encounter Care Teams Parent Aide Relationship Specialty Start Date End Date Sobeida Morgan APRN [address] [place] [address] PCP - General Family Medicine 05/20/18 documented as of this encounter
--- OUTSIDE RECORDS SUMMARY | 2024-01-15 00:22 | XMS_ITS | Encounter Summary ---
Author Organization [facility] [place] [address] Care Team Providers Care Ruby On Rails Web Developer Name Role Phone Sobeida Morgan APRN Primary Care Provider [phone] Encounter Details Date Type Department Care Team (Late st Contact Info) Description 12/24/2023 10:00 AM EDT Office Visit Dermatology at [facility] [address] [place] [address] Chika Waite MD [facility] [address] [place] [address] AK (actinic keratosis); SK (seborrheic keratosis); Conteh angioma; Multiple benign melanocytic nevi of upper and lower extremities and trunk; Sebaceous hyperplasia Social History Tobacco Use Types Packs/Day Years [...] as of this encounter Progress Notes * Chika Waite MD - 12/24/2023 10:00 AM EDT Images from the original note were not included. DEPARTMENT OF DERMATOLOGY Medical Dermatology Clinic Provider: Chika Waite MD Patient's preferred name Luisana Preferred contact method for results [x]Phone: Cell []myD-H []Letter Detailed phone message OK? Yes Are there any other people with whom we may discuss your care? , Tao Past Medical History Date, location, treatment Melanoma No Dysplastic nevi No SCC No BCC No AKs LN2 UV Exposure & Protection + history of blistering sunburn Other relevant past medical history Family History Details Melanoma No NMSC Mother, brother Other relevant family history No Social History Occupation: Retired Hobbies: needle felting Other: Luisana and her , Tao, live in [place], [place]. Pre-Procedure Screening Details Allergy to lidocaine, epinephrine, Dermabond, chlorhexidine, or adhesives No Bleeding disorder or blood thinners No Implanted devices (Pacemaker, defibrillator, deep brain stimulator, cochlear implant) No History of Present Illness: Luisana [place] is a 68 y.o. Patient is new and self-referred to the clinic for a full skin exam with the following concerns: - She notes a few rough patches on the face. She notes some of the rough patches on her nose can bepainful at times. Medications: Reviewed in eD-H Allergies: Reviewed in [...] extremities. Genitalia and buttocks were not examined. Assessment/Plan #. Actinic Keratoses - Ill-defined gritty papules on the nasal dorsum x1, right nasal sidewall x1, left inferior cheek x1. - Explained premalignant potential of these lesions. - Discussed treatment with cryotherapy. Patient elects to proceed with cryotherapy today. - Instructed patient to return to clinic for re-evaluation if lesion(s) does not resolve as expected with this treatment. Procedure: Destruction of lesion(s) with cryotherapy (LN2). Location(s): As noted above. Number: 3 Discussed procedure and expectations, including risks and benefits. Verbal consent obtained. Treated with LN2. There were no complications; Patient tolerated the procedure well. Post-procedure expectations and wound care reviewed. #. Sebaceous Hyperplasia - Yellowish papules with central umbilication and radial telangiectasias on the right infraorbital cheek. - Discussed diagnosis and etiology (benign growths of sebaceous glands and hair follicle unit). - Provided reassurance. No treatment necessary at this time. - Briefly reviewed cosmetic treatment options including but not limited to: topical tretinoin, electrocautery, and laser therapy. #. Seborrheic Keratoses - Stuck on, waxy papules on the trunk and extremities, including forehead. - Discussed benign nature of lesions and provided reassurance. No treatment necessary at this time. #. Conteh Angiomas - Multiple bright red, well-demarcated papules on the trunk and extremities. - Discussed benign nature of lesions and provided reassurance. No treatment necessary at this time. #. Benign Nevi - Scattered medium brown, evenly pigmented macules and papules on the trunk and extremities with reassuring pigment pattern on dermoscopy. - Discussed benign nature of lesions and provided reassurance. Will continue to monitor. Other: Sun protection discussed (protective clothing and SPF30+ broad-spectrum sunscreen) RTC: 1 year for FSE []Note routed to physician office secretary [x]Recall placed in scheduling system []Appointment scheduled at checkout Scribe attestation: Ananya Watson [facility] has performed the documentation for this encounter in thepresence of and acting as a scribe for Chika Waite MD. I performed the above scribed service and agree with the accuracy of the documentation in this encounter. Reviewed and signed by: Chika Waite MD Dermatology [facility] * Martina Bernal MD - 12/24/2023 10:00 AM EDT I directly supervised Chika Waite MD in the care of this Dermatology patient in person. I saw and evaluated this patient with Chika Waite MD. Chika Waite MD presented the history and physical exam details to me, then we saw the patient together, and I confirmed these findings. I agree with details as written. My physical examination confirms Chika Waite MD's findings. The assessment and plan were formulated in discussion with me at the time of visit, and I agree with them as documented. MARTINA BERNAL MD Staff Cocktail Lounge Manager Department of Dermatology [facility] documented in this encounter Plan of Treatment Not on file documented as of this encounter Visit Diagnoses Diagnosis AK (actinic keratosis) Actinic keratosis SK (seborrheic keratosis) Other seborrheic keratosis Conteh angioma Nevus, non-neoplastic Multiple benign melanocytic nevi of upper and lower extremities and trunk Sebaceous hyperplasia Other specified disease of sebaceous glands documented in this encounter Care Teams Ruby On Rails Web Developer Relationship Specialty Start Date End Date Sobeida Morgan, OBSTETRICS TECHNICIAN [address] [place] [address] PCP - General Family Medicine 05/20/18 documented as of this encounter
--- OUTSIDE RECORDS SUMMARY | 2024-01-15 00:22 | XMS_ITS | Clinical Summary ---
Author Organization [facility] Address [facility] [place] [address] Care Team Providers Care Cryogenic Transport Driver Name Role Phone Sobeida Morgan APRN Primary Care Provider [phone] Allergies No known active allergies Medications Medication Sig Dispensed Refills Start Date End Date Status meTOPROLOL tartrate (LOPRESSOR) 25 mg Tablet Take 37.5 mg by mouth daily. Active FLUoxetine (PROzac) 10 mg capsule Take 10 mg by mouth daily. Active Active Problems No known active problems Encounters Date Type Department Care Team Description 12/24/2023 10:00 AM EDT Office Visit Dermatology at [facility] [address] [place] [address] Chika Waite MD AK (actinic keratosis); SK (seborrheic keratosis); Conteh angioma; Multiple benign melanocytic nevi of upper and lower extremities and trunk; Sebaceous hyperplasia 12/24/2023 Travel from Last 3 Months Social History Tobacco Use Types Packs/Day Years [...] 09/15/2017 10:06 AM EDT Plan of Treatment Health Maintenance Due Date Last Done Comments [...] - Influenza standard series) 11/08/2023 Care Teams Cryogenic Transport Driver Relationship Specialty Start Date End Date Sobeida Morgan APRN [address] [place] [address] PCP - General Family Medicine 05/20/18
--- OUTSIDE RECORDS SUMMARY | 2024-01-15 00:22 | XMS_ITS | Encounter Summary ---
Author Organization [facility] Address [facility] [place] [address] Care Team Providers Care Director Of Property Management Name Role Phone Sobeida Morgan APRN Primary Care Provider [phone] Reason for Visit * Reason Comments Skin Cancer Examination Encounter Details Date Type Department Care Team (Late st Contact Info) Description 10/30/2020 9:30 AM EDT Office Visit Dermatology at [facility] [address] [place] [address] Josue Real MD [facility] [place] [address] Seborrheic keratoses; Multiple benign nevi; Lentigines Social [...] history N Social History Occupation: works at [employer] Other: Pre-Procedure Screening Details Allergy to lidocaine, [...] asymptomatic Last FSE: 07/26/2019 Last visit at [facility] Derm: 07/26/2019 Last visit with this provider: [...] year for FSE [] Note routed to church secretary [x] Recall placed in scheduling system [] Appointment scheduled before exiting Delores Funez and Janny Iqbal CMA have performed the documentation for this encounter in the presence of and acting as scribes for JOSUE REAL MD. I performed the above scribed service and agree with the accuracy of the documentation in this encounter. Reviewed and signed by: JOSUE REAL MD Dermatology [facility] documented in this encounter Plan of Treatment Not on file documented as of this encounter Visit Diagnoses Diagnosis Seborrheic keratoses Multiple benign nevi Benign neoplasm of skin, site unspecified Lentigines Other dyschromia documented in this encounter Care Teams Director Of Property Management Relationship Specialty Start Date End Date Sobeida Morgan APRN [address] [place] [address] PCP - General Family Medicine 05/20/18 documented as of this encounter
--- OUTSIDE RECORDS SUMMARY | 2024-01-15 00:23 | XMS_ITS | Encounter Summary ---
Author Organization [facility] Address [facility] [place] [address] Care Team Providers Care Sweatband Maker Name Role Phone Megan Morley MD Primary Care Provider [phone] Reason for Visit * Auth/Cert Specialty Diagnoses / Procedures Referred By Ara dailey Referred To Contact Diagnoses 1 yr surv from 07/17/16 Procedures PRO UPPER GI ENDOSCOPY, DIAGNOSTIC EGD, UPPER GI ENDOSCOPY Referral ID Status Reason Start Date Expiration Date Visits Re quested Visits Authorized [id number] 1 1 Encounter Details Date Type Department Care Team (Late st Contact Info) Description 09/15/2017 10:15 AM EDT - 09/15/2017 11:00 AM EDT [place] [address] Epi Rees MD [facility] [place] [address] EGD, UPPER GI ENDOSCOPY (WRVU 2.09) Social [...] - 09/15/2017 11:52 AM EDT Please call [phone] before 8pm Mon-Fri with problems, questions or concerns. If you call after 8pm or on weekends, call the Hospital at [phone] and ask to speak to the Yeast Pusher fabrication machine operator and the hot header operator will contact that person for you. [...] better as expected. Thursday-Thursday Same Day Endo [phone] 7a-8p Otherwise contact [phone] and ask to speak to the satin finisher fabrication machine operator Follow-up care is a magaña part of [...] Tablet Take 37.5 mg by mouth daily. omeprazole (PRILOSEC) 20 mg Capsule, Delayed Release(E.C.) Take 20 mg by mouth daily. 12/24/2023 lisinopril (PRINIVIL;ZESTRIL) 10 mg Tablet Take 10 mg by mouth daily. 12/24/2023 famotidine (PEPCID) 20 mg Tablet Take 20 [...] Rees MD - 09/15/2017 11:59 AM EDT [facility] Operative Note Patient Name: Luisana Magdaleno : [id number] MR#: [id number] Case Date: 09/15/2017 Surgeon: Surgeon(s) and Role: * Epi Rees MD - Primary Preoperative diagnosis: 1 yr surv from 07/17/16 Postoperative diagnosis: * No post-op diagnosis entered * Procedure(s) (LRB): EGD, UPPER GI ENDOSCOPY (N/A) Full procedure note is documented under the Procedure section of eDH. documented in this encounter Plan of Treatment Not on file documented as of this encounter Procedures Procedure Name Priority Date/Time Associated Diagnosis Comments UPPER GI ENDOSCOPY Routine 09/15/2017 11 :34 AM EDT EGD, UPPER GI ENDOSCOPY (WRVU 2.09) 09/15/2017 11:33 AM EDT 1 yr surv from 07/17/16 documented in this encounter Results * UPPER GI ENDOSCOPY (09/15/2017 11:34 AM EDT) UPPER GI ENDOSCOPY [facility] Endoscopy ___ Procedure Date: 09/15/2017 11:34 AM ? Patient Name: Luisana Magdaleno ? Date of : 1955 ? Age: 62 ? Order #: [id number] ? Instrument Name: [id number] ? ___ Procedure: ? Upper GI endoscopy Indications: ? f/up duodenal polyps and possible ? microcarcinoid Providers: ? Epi Rees MD, Lopez Rubin, ? RN, Hilda Baker, Distillery Worker General Referring : ?Megan Morley MD Medicines: ? Propofol per [...] infusion 100 mL/hr, Intravenous, CONTINUOUS, Starting on 09/15/17 at 1030, Until 09/15/17 at 1213, Endoscopy (Day of Procedure) New Bag 09/15/2017 11:32 AM EDT New Bag 09/15/2017 10:10 AM EDT 100 mL/hr 100 mL/hr documented in this encounter Active and Recently Administered Medications Times are shown in EDT. Continuous Medication Order 09/13/2017 09/14/2017 09/15/2017 lactated Ringers infusion (CANCELED) 100 mL/hr, Intravenous, CONTINUOUS, Starting on 09/15/17 at 1030, Until 09/15/17 at 1213, Endoscopy (Day of Procedure) 1010 (New Bag - Prov ider: Lucinda Hill RN)1132 (New Bag - Provider: Dwayne Rodriguez CRNA)1145 (Anesthesia Volume Adjustment - Provider: Dwayne Rodriguez CRNA) documented in this encounter Care Teams Sweatband Maker Relationship Specialty Start Date End Date Megan Morley MD [address] [place] [address] PCP - General Family Medicine 07/17/16 05/19/18 documented as of this encounter
--- OUTSIDE RECORDS SUMMARY | 2024-01-15 00:23 | XMS_ITS | Encounter Summary ---
Author Organization [facility] Address [facility] [place] [address] Care Team Providers Care Grey Roll Man Name Role Phone Lea Courtney APRN Primary Care Provider [phone] Encounter Details Date Type Department Care Team (Late st Contact Info) Description 07/03/2016 External [place] [address] Provider, Scanning Social History Tobacco Use Types [...] on filedocumented in this encounter Care Teams Grey Roll Man Relationship Specialty Start Date End Date Lea Courtney APRN [address] [place] [address] PCP - General 10/09/12 07/06/16 documented as of this encounter
--- OUTSIDE RECORDS SUMMARY | 2024-01-15 00:23 | XMS_ITS | Encounter Summary ---
Author Organization [facility] Address [facility] [place] [address] Care Team Providers Care Director Of Provider Relations Name Role Phone Lea Courtney APRN Primary Care Provider [phone] Encounter Details Date Type Department Care Team (Late st Contact Info) Description 07/03/2016 External Results [place] [address] Provider, Scanning Social History Tobacco Use Types [...] Results * Scan Doc: Surgical Pathology (07/03/2016) pEi Rees MD MEDIA MGR SCAN EXT O RDR/RSLT documented in this encounter Visit Diagnoses Not on filedocumented in this encounter Care Teams Director Of Provider Relations Relationship Specialty Start Date End Date Lea Courtney APRN [address] [place] [address] PCP - General 10/09/12 07/06/16 documented as of this encounter
--- OUTSIDE RECORDS SUMMARY | 2024-01-15 00:23 | XMS_ITS | Encounter Summary ---
Author Organization [facility] Address [facility] [place] [address] Care Team Providers Care National Sales Director Name Role Phone Megan Molrey MD Primary Care Provider [phone] Encounter Details Date Type Department Care Team (Latest Contact Info) Description 07/17/2016 6:54 AM EDT - 07/17/2016 10:55 AM EDT Hospital En[place] [address] Epi Rees MD [facility] [place] [address] Discharge Disposition: Home Social History Tobacco Use [...] test. You may use ice chips, popsicles, ossc-cda-cdaqftq throat lozenges or sprays that may help [...] better as expected Thursday-Thursday Same Day Endo [phone] 7a-8p Otherwise contact [phone] and ask to speak to the catering cook distribution collection operator The patient reports understanding discharge instructions UPPER [...] better as expected. Thursday-Thursday Same Day Endo [phone] 7a-8p Otherwise contact [phone] and ask to speak to the catering cook distribution collection operator Follow-up care is a magaña part [...] Tablet Take 37.5 mg by mouth daily. lisinopril (PRINIVIL;ZESTRIL) 10 [...] Rees MD - 07/17/2016 10:50 AM EDT [facility] [place] Operative Note Patient Name: Luisana Magdaleno : [id number] MR#: [id number] Case Date: 07/17/2016 Surgeon: Surgeon(s) and Role: [...] Report (07/17/2016 9:36 AM EDT) Final Diagnosis [id number] ?Location: 4T; EA06; A The signing pathologist [...] B1. (T2) ??pps 07/21/2016 3:[address] [facility] GI Biopsy 07/17/2016 9:36 AM EDT 07/17/2016 9:36 AM EDT GI Biopsy 07/17/2016 9:36 AM EDT 07/17/2016 9:36 AM EDT Sesar Silvestre MD PATHOLOGY/CYTOLOGY Gary LOPEZ [facility] [place] [address] * Specimen to Pathology (surgical or derm) (07/17/2016 9:36 AM EDT) AP Specimen 07/17/2016 9:36 AM EDT 07/17/2016 9:[address] [facility] - 07/17/2016 9:36 AM EDT Specimen requisition ordered. ??Separate Pathology report to follow Sesar Silvestre MD PATHOLOGY/CYTOLOGY O JESSICA Performing Organization Address [facility] [place] [address] * Specimen to Pathology (surgical or derm) (07/17/2016 9:36 AM EDT) AP Specimen 07/17/2016 9:36 AM EDT 07/17/2016 9:[address] [facility] - 07/17/2016 9:36 AM EDT Specimen requisition ordered. ??Separate Pathology report to follow Sesar Silvetsre MD PATHOLOGY/CYTOLOGY O JESSICA Performing Organization Address [facility] [place] [address] * UPPER GI ENDOSCOPY (07/17/2016 7:29 AM EDT) UPPER GI ENDOSCOPY [facility] Endoscopy Procedure Date: 07/17/2016 7:29 AM ? Patient Name: Luisana Magdaleno ? N: [id number] ? Date of : 1955 ? Age: 61 ? Order #: [id number] ? Instrument Name: [id number] ? Procedure: ? 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 Epi Rees MD, Salma Mkceon ? KAT Emery, Lopez Rubin RN, Sesar ? Deena Silvestre [...] care under the ? supervision of a DIVERSITY MANAGER was determined ? to be medically necessary [...] Procedure Code(s): ?? --- Professional --- ? 27186, Esophagogastroduoden oscopy, ? flexible, transoral; with removal of ? tumor(s), polyp(s), or other ? lesion(s) by snare technique CPT copyright 2016 [employer]. All rights reserved. The codes documented in this report are preliminary and upon physician coder review may be revised to meet current [...] ? Patient Name: Luisana Magdaleno ? N: [id number] ? Date of : 1955 ? Age: 61 ? Order #: [id number] ? Instrument Name: [id number] ? Procedure: ? 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 Epi Rees MD, Salma Mckeon ? KAT Emery, Lopez Rubin RN, Sesar ? Deena Silvestre MD Referring MD: ?Megan Morley MD, Rk Echeverria ? MD [...] Routine documented in this encounter Care Teams National Sales Director Relationship Specialty Start Date End Date Megan Morley MD [address] [place] [address] PCP - General Family Medicine 07/17/16 05/19/18 documented as of this encounter
--- OUTSIDE RECORDS SUMMARY | 2024-01-15 00:23 | XMS_ITS | Encounter Summary ---
Author Organization [facility] Address [facility] [place] [address] Care Team Providers Care Watch Repairer Name Role Phone Megan Morley MD Primary Care Provider [phone] Reason for Visit * Auth/Cert Specialty Diagnoses / Procedures Referred By Contac t Referred To Contact Diagnoses 1 yr surv from 07/17/16 Procedures PRO UPPER GI ENDOSCOPY, DIAGNOSTIC EGD, UPPER GI ENDOSCOPY Referral ID Status Reason Start Date Expiration Date Visits Re quested Visits Authorized [id number] 1 1 Encounter Details Date Type Department Care Team (Late st Contact Info) Description 09/15/2017 11:32 AM EDT Anesthesia [place] [address] Trish Sharif MD [facility] DR ANESTHESI[place] [address] Dwayne Rodriguez, [facility] [address] [place]HESIOLOG[place] [address] Anesthesia Record Procedure Summary Procedure Name Responsible [...] 1010; median cubital vein (antecubital fossa), right; htkb-iqr-afrkqp catheter system; 20 gauge; Jonny Waite RN; [...] Sharif MD - 09/16/2017 12:31 PM EDT [facility] [place] of Anesthesiology Post-procedure Note Patient: Luisana Sullivan Procedure Summary Date Anesthesia Start Anesthesia Stop Room / Location 09/15/17 1132 1147 [facility] ENDO 3 / [facility] ENDOSCOPY Procedure Diagnosis Surgeon Responsible Provider EGD, UPPER GI ENDOSCOPY (N/A Trunk) (1 yr surv from 07/17/16) Epi Rees MD Koff, Matthew D, MD All Anesthesia Providers: Anesthesiologist: Trish Sharif MD ASSOCIATE MATERIAL HANDLER: Dwayne Rodriguez CRNA Most Recent Vitals: 09/15/17 [...] MD * Anesthesia Preprocedure Evaluation - Trish Shairf MD - 09/15/2017 10:29 AM EDT Pre-Anesthesia Evaluation for: Luisana Sullivan a 62 y.o. female. Procedure(s): EGD, UPPER GI ENDOSCOPY There are no active problems to display for this patient. No past medical history on file. Past Surgical History: Procedure Laterality Date ??? PRO ENDOSCOPIC US EXAM, ESOPH N/A 07/17/2016 UPPER EUS- ENDOSCOPIC ULTRASOUND performed by Epi Rees MD at [facility] ENDOSCOPY ??? PRO UPPER GI ENDOSCOPY, BIOPSY N/A 07/17/2016 EGD WITH BIOPSY (WRVU 2.49) performed by Epi Rees MD at [facility] ENDOSCOPY Social History Substance Use Topics [...] risks discussed with patient. Plan discussed with ASSOCIATE MATERIAL HANDLER. PAT Staff Note documented in this encounter [...] mL/hr documented in this encounter Care Teams Watch Repairer Relationship Specialty Start Date End Date Megan Morley MD [address] [place] [address] PCP - General Family Medicine 07/17/16 05/19/18 documented as of this encounter
--- OUTSIDE RECORDS SUMMARY | 2024-01-15 00:23 | XMS_ITS | Encounter Summary ---
Author Organization [facility] Address [facility] [place] [address] Care Team Providers Care Gold Tooler Name Role Phone Sobeida Morgan APRN Primary Care Provider [phone] Reason for Visit * Reason Comments Skin Cancer Examination Encounter Details Date Type Department Care Team (Late st Contact Info) Description 07/26/2019 1:00 PM EDT Office Visit Dermatology at [facility] [address] [place] [address] Kezia Real MD [facility] [place] [place] [address] [place] (actinic keratosis); SK (seborrheic keratosis); History [...] * Patient Instructions* Clair Strickland CCMA - 07/26/2019 1:00 PM EDT [...] to 5pm), please call the clinic at [phone]. After 5pm, and on weekends and holidays, please call the hospital at [phone] and ask for the Make Up Worker Clinique Counter Manager. documented in this encounter Progress Notes * [...] to discuss care with (Tao) Preferred pharmacy [facility] in [place], [place] Procedure Screening Questions Y/N Allergies to [...] documentation in this encounter. Kezia Real MD Generator Switchboard Operator of Dermatology Department of Surgery [facility] cc: Sobeida Morgan APRN documented in this encounter Plan of Treatment Not on file documented as of this encounter Visit Diagnoses Diagnosis AK (actinic keratosis) Actinic keratosis SK (seborrheic keratosis) Other seborrheic keratosis History of actinic keratosis Personal history of diseases of skin and subcutaneous tissue documented in this encounter Care Teams Gold Tooler Relationship Specialty Start Date End Date Sobeida Morgan APRN [address] [place] [address] PCP - General Family Medicine 05/20/18 documented as of this encounter
--- OUTSIDE RECORDS SUMMARY | 2024-01-15 00:23 | XMS_ITS | Encounter Summary ---
Author Organization [facility] Address [facility] [place] [address] Care Team Providers Care Nurse Discharge Planner Name Role Phone Megan Morley MD Primary Care Provider [phone] Reason for Visit * Reason Comments Skin Check * Consultation (Routine) - Closed Specialty Diagnoses / Procedures Referred By Contac t Referred To Contact Dermatology Diagnoses multiple skin lesions Sobeida Morgan APRN [address] [place] [address] [facility] Dermatology [address] [place] [address] Referral ID Status Reason Start Date Expiration Date V isits Requested Visits Authorized [id number] Closed Consult, Test & Treat Connection Center 09/16/2016 09/16/2017 1 1 Encounter Details Date Type Department Care Team (Late st Contact Info) Description 10/20/2016 9:30 AM EDT Office Visit Dermatology at [facility] [address] [place] [address] Sanjana Mason MD [facility] [place] [address] Seborrheic keratosis, inflamed; Conteh angioma; [...] by Sanjana Mason MD Resident in Dermatology [facility] Patient discussed with staff tmd teacher assistant: Isidro Knox MD Section of Dermatology [facility] * Isidro Knox MD - 10/20/2016 9:30 AM EDT I was the supervising physician working with Dermatology resident, Dr. Mason, in the Dermatology Clinic during this patient visit. The level of resident supervision for this patient visit was indirect supervision with direct supervision immediately available (definition: [facility] GME Policy Statement on Graduate Medical Education, [...] keratosis documented in this encounter Care Teams Nurse Discharge Planner Relationship Specialty Start Date End Date eMgan Morley MD [address] [place] [address] PCP - General Family Medicine 07/17/16 05/19/18 documented as of this encounter
--- OUTSIDE RECORDS SUMMARY | 2024-01-15 00:23 | XMS_ITS | Encounter Summary ---
Author Organization [facility] Address [facility] [place] [address] Care Team Providers Care Cytogenetics Technologist Name Role Phone SherwinMorenakatarina Valentino APRN Primary Care Provider Encounter Details Date Type Department Care Team (Latest Contact Info) Description 07/03/2016 2:34 PM EDT - 07/03/2016 11:59 PM EDT [place] [address] Discharge Disposition: Home Social History Tobacco Use [...] Report (07/03/2016 2:59 PM EDT) Final Diagnosis [id number] ?Location: OPW The signing pathologist has (i) examined the relevant preparation(s) for the specimen(s) and (ii) rendered or confirmed the diagnosis(es). . ?Surgical Pathology DIAGNOSIS CONSULTATION CASE A - Outside slide(s) labeled [id number], collection date 05/27/2016. (1) - Stomach, antrum, [...] ??see Discussion. B - Outside slide(s) labeled [id number], collection date 06/18/2016. Duodenum, first portion, lesion, [...] is seen. ADDITIONAL STUDIES Whole slide scan: [id number] [id number] CLINICAL INFORMATION Specimen Submitted: CONSULTATION CASE A - 7 slide(s) labeled [id number], collection date 05/27/2016. B - 4 slide(s) labeled [id number], collection date 06/18/2016. [id number] Report to: [facility] . CLINICAL INFORMATION Surgical Pathology Department [facility], 2nd Floor [address] [place] [address] ??[id number] [facility] ([facility]) pathology slide(s) are reviewed. ??Refer to Diagnosis and Specimen Submitted for specific case information. For the full text of the [facility] report(s) please refer to Non-DH Documentation Pathology in the electronic health record (eDH). 07/05/2016 4:24 PM EDT [facility] Consult Case 07/03/2016 2:59 PM EDT 07/03/2016 2:59 PM EDT Consult Case 07/03/2016 2:59 PM EDT 07/03/2016 2:59 PM EDT Epi Rees MD PATHOLOGY/CYTOLOGY O JESSICA Performing Organization Address City/State/[facility] Co de Phone Number [facility] [place] [address] documented in this encounter Visit Diagnoses Not on filedocumented in this encounter Care Teams Cytogenetics Technologist Relationship Specialty Start Date End Date eLa Courtney APRN [address] [place] [address] PCP - General 10/09/12 07/06/16 documented as of this encounter
--- OUTSIDE RECORDS SUMMARY | 2024-01-15 00:23 | XMS_ITS | Encounter Summary ---
Author Organization [facility] Address [facility] [place] [address] Care Team Providers Care Cat Skinner Name Role Phone Megan Morley MD Primary Care Provider [phone] Encounter Details Date Type Department Care Team (Late st Contact Info) Description 07/17/2016 8:00 AM EDT - 07/17/2016 9:00 AM EDT [place] [address] Epi Rees MD [facility] [place] [address] UPPER EUS- ENDOSCOPIC ULTRASOUND (WRVU 3.47) Social [...] test. You may use ice chips, popsicles, vtww-pxm-yqrjeja throat lozenges or sprays that may help [...] better as expected Thursday-Thursday Same Day Endo [phone] 7a-8p Otherwise contact [phone] and ask to speak to the collar turner insolvency consultant The patient reports understanding discharge instructions UPPER [...] better as expected. Thursday-Thursday Same Day Endo [phone] 7a-8p Otherwise contact [phone] and ask to speak to the collar turner insolvency consultant Follow-up care is a magaña part of [...] Rees MD - 07/17/2016 10:[address] 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 documented in this encounter Plan of Treatment [...] Report (07/17/2016 9:36 AM EDT) Final Diagnosis [id number] ?Location: 4T; EA06; A The signing pathologist [...] B1. (T2) ??pps 07/21/2016 3:26 PM EDT [facility] GI Biopsy 07/17/2016 9:36 AM EDT 07/17/2016 9:36 AM EDT GI Biopsy 07/17/2016 9:36 AM EDT 07/17/2016 9:36 AM EDT Sesar Silvestre MD PATHOLOGY/CYTOLOGY O JESSICA [facility] [place] [address] * Specimen to Pathology (surgical or derm) (07/17/2016 9:36 AM EDT) AP Specimen 07/17/2016 9:36 AM EDT 07/17/2016 9:36 AM EDT Narrative [facility] - 07/17/2016 9:36 AM EDT Specimen requisition ordered. ??Separate Pathology report to follow Sesar Silvestre MD PATHOLOGY/CYTOLOGY O JESSICA Performing Organization Address [facility] [place] [address] * Specimen to Pathology (surgical or derm) (07/17/2016 9:36 AM EDT) AP Specimen 07/17/2016 9:36 AM EDT 07/17/2016 9:36 AM EDT Narrative [facility] - 07/17/2016 9:36 AM EDT Specimen requisition ordered. ??Separate Pathology report to follow Sesar Silvestre MD PATHOLOGY/CYTOLOGY Gary LOPEZ Performing Organization Address [facility] [place] [address] * UPPER GI ENDOSCOPY (07/17/2016 7:29 AM EDT) UPPER GI ENDOSCOPY [facility] Endoscopy Procedure Date: 07/17/2016 7:29 AM ? Patient Name: Luisana Magdaleno ? Date of : 1955 ? Age: 61 ? Order #: [id number] ? Instrument Name: [id number] ? Procedure: ? Upper GI endoscopy Indications: [...] care under the ? supervision of a CASHIER ASSOCIATE was determined ? to be medically necessary [...] Procedure Code(s): ?? --- Professional --- ? 58417, Esophagogastroduoden oscopy, ? flexible, transoral; with removal of ? tumor(s), polyp(s), or other ? lesion(s) by snare technique CPT copyright 2016 [employer]. All rights reserved. The codes documented in this report are preliminary and upon naval gunfire spotter review may be revised to meet current [...] (07/17/2016 7:28 AM EDT) UPPER ENDOSCOPIC ULTRASOUND [facility] Endoscopy Procedure Date: 07/17/2016 7:28 AM ? Patient Name: Luisana Magdaleno ? Date of : 1955 ? Age: 61 ? Order #: [id number] ? Instrument Name: [id number] ? Procedure: ? 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 Epi Rees MD, Salma Mckeon ? Yuly, RN, Lopez Rubin, RN, Sesar ? Deena Silvestre MD Referring [...] Routine documented in this encounter Care Teams Cat Skinner Relationship Specialty Start Date End Date Megan Morley MD [address] [place] [address] PCP - General Family Medicine 07/17/16 05/19/18 documented as of this encounter
--- OUTSIDE RECORDS SUMMARY | 2024-01-15 00:23 | XMS_ITS | Encounter Summary ---
Author Organization [facility] Address [facility] [place] [address] Care Team Providers Care Aluminum Polisher Name Role Phone Megan Morley MD Primary Care Provider Encounter Details Date Type Department Care Team (Late st Contact Info) Description 07/17/2016 8:14 AM EDT Anesthesia [place] [address] Leana Puri MD [facility] [place] [address] Maria Tabares CRNA [facility] [place] [address] Anesthesia Record Procedure Summary Procedure Name Responsible [...] cuff inflation 0922 [facility] 0930 an stop data 0937 Recovery or [...] basilic vein (medial side of arm), right; hxru-ybv-rkqgid catheter system; 07/17/16; 1034 07/17/16 0747 by [...] Puri MD - 07/17/2016 11:16 AM EDT [facility] Department of Anesthesiology Post-procedure Note Patient: Luisana Sullivan Procedure Summary Date Anesthesia Start Anesthesia Stop Room / Location 07/17/16 0814 0938 [facility] ENDO 3 / [facility] ENDOSCOPY Procedure Diagnosis Surgeon Responsible Provider UPPER EUS- ENDOSCOPIC ULTRASOUND (N/A Trunk); EGD WITH BIOPSY (WRVU 2.49) (N/A ) (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
--- OUTSIDE RECORDS SUMMARY | 2024-01-15 00:23 | XMS_ITS | Encounter Summary ---
Author Organization [facility] Address [facility] [place] [address] Care Team Providers Care Dairy Nutrition Specialist Name Role Phone Sobeida Morgan APRN Primary Care Provider [phone] Reason for Visit * Reason Comments Skin Lesion Nose * Consultation (Routine) - Closed Specialty Diagnoses / Procedures Referred By Ara dailey Referred To Contact Dermatology Diagnoses Lesion on tip of her nose Janene Bolden APRN [address] [place] [address] [facility] Dermatology [address] [place] [address] Referral ID Status Reason Start Date Expiration Date V isits Requested Visits Authorized [id number] Closed Consult, Test & Treat Connection Center 05/20/2018 05/20/2019 1 1 Encounter Details Date Type Department Care Team (Late st Contact Info) Description 06/04/2018 9:30 AM EDT Office Visit Dermatology at [facility] [address] [place] [address] Kezia Real MD [facility] [address] [place] (actinic keratosis); Telangiectasia Social History Tobacco [...] to 5pm), please call the clinic at [phone]. After 5pm, and on weekends and holidays, please call the hospital at [phone] and ask for the Child Adolescent Care Distillery Laborer. documented in this encounter Progress Notes * [...] No NMSC: Mother, brother Social History: Occupation: social studies teacher Marital status: Children: 2 Lives in [place], [place] Patient Preferences: Preferred name: Luisana Preferred [...] the presence of Dr. Real: Clair Strickland LINING FELLER BLINDSTITCH I performed the above scribed service and agree with the accuracy of the documentation in this encounter. Kezia Real MD Touch Up Worker of Dermatology Department of Surgery [facility] documented in this encounter Plan of Treatment Not on file documented as of this encounter Visit Diagnoses Diagnosis AK (actinic keratosis) Actinic keratosis Telangiectasia Other and unspecified capillary diseases documented in this encounter Care Teams Dairy Nutrition Specialist Relationship Specialty Start Date End Date Sobeida Morgan APRN [address] [place] [address] PCP - General Family Medicine 05/20/18 documented as of this encounter
--- OUTSIDE RECORDS SUMMARY | 2024-01-15 00:23 | XMS_ITS | Encounter Summary ---
Author Organization [facility] Address [facility] [place] [address] Care Team Providers Care Associate Financial Planner Name Role Phone Megan Morley MD Primary Care Provider [phone] Reason for Visit * Auth/Cert Specialty Diagnoses / Procedures Referred By Ara dailey Referred To Contact Diagnoses 1 yr surv from 07/17/16 Procedures PRO UPPER GI ENDOSCOPY, DIAGNOSTIC EGD, UPPER GI ENDOSCOPY Referral ID Status Reason Start Date Expiration Date Visits Re quested Visits Authorized [id number] 1 1 Encounter Details Date Type Department Care Team (Latest Contact Info) Description 09/15/2017 9:33 AM EDT - 09/15/2017 12:24 PM EDT Hospital Encounter [place] [address] Epi Rees MD [facility] [place] [address] Discharge Disposition: Home Social History Tobacco Use [...] - 09/15/2017 11:52 AM EDT Please call [phone] before 8pm Mon-Fri with problems, questions or concerns. If you call after 8pm or on weekends, call the Hospital at [phone] and ask to speak to the Global Professional early childhood education coordinator and the steel crane operator will contact that person for you. [...] better as expected. Thursday-Thursday Same Day Endo [phone] 7a-8p Otherwise contact [phone] and ask to speak to the spectral scientist early childhood education coordinator Follow-up care is a [place] part of [...] Rees MD - 09/15/2017 11:59 AM EDT [facility] [place] Operative Note Patient Name: Luisana Magdaleno : [id number] MR#: [id number] Case Date: 09/15/2017 Surgeon: Surgeon(s) and Role: [...] (09/15/2017 11:34 AM EDT) UPPER GI ENDOSCOPY [facility] Endoscopy ___ Procedure Date: 09/15/2017 11:34 AM ? Patient Name: Luisana Magdaleno ? Date of : 1955 ? Age: 62 ? Order #: [id number] ? Instrument Name: [id number] ? ___ Procedure: ? Upper GI endoscopy Indications: ? f/up duodenal polyps and possible ? microcarcinoid Providers: ? Epi Rees MD, Lopez Rubin, ? RN, Hilda Baker, Legal Researcher Referring : ?Megan Morley MD Medicines: ? [...] CONTINUOUS, Starting on 09/15/17 at 1030, Until e 09/15/17 at 1213, Endoscopy (Day of Procedure) 1010 (New Bag - Prov ider: Lucinda Hill RN)1132 (New Bag - Provider: Dwayne Rodriguez CRNA)1145 (Anesthesia Volume Adjustment - Provider: Dwayne Rodriguez CRNA) documented in this encounter Care Teams Associate Financial Planner Relationship Specialty Start Date End Date Megan Morley MD [address] [place] [address] PCP - General Family Medicine 07/17/16 05/19/18 documented as of this encounter
--- NOTE | 2024-01-15 08:10 | DI.MAMMO_ITS ---
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 COMPARISON: Available for comparison. FINDINGS: Masses/Architectural Distortion: There is a stable nodule in the anterior aspect of the right breast on the MLO view. No new nodules are seen. No areas of architectural distortion are present. Microcalcifications: No suspicious pleomorphic-type are seen. Skin Thickening/Nipple Retraction: None. IMPRESSION: 1. No significant interval change with no specific features of malignancy noted. 2. Unless there is more urgent need, screening mammography is recommended, as per [employer] guidelines. BI-RADS Category 2 - Benign Findings Breast Density - Category C - Heterogeneously dense Breast density category C or D implies that the patient has dense breast tissue. Dense breast tissue is very common and is not abnormal but dense breast tissue can make it harder to find cancer on a ma mmogram. Also, dense breast tissue may increase their breast cancer risk. This information about the result of the mammogram report was provided to the patient to raise their awareness. Use this report when you speak with the patient about their risks for breast cancer, which includes their family hist ory. At that time, you may recommend for more screening tests (Ultrasound or MRI) as they might be us eful based on their risk. A negative radiographic report should not delay biopsy if a dominant or clinically suspicious mass is present. Up to ten percent of cancers are not identified on mammography. A negative report may reinforce clinical impression. Adenosis and dense breasts may obscure an underlying neoplasm. False positive reports average 6 to 10%. Patient will receive a letter notifying them of these results.
== END 2024-01-15 00:41 ==
LOC: DI 00:21
PROVIDERS: PCP Nurse Practitioner Family; Visit Provider Nurse Practitioner Family
DX: Z12.31 Encounter for screening mammogram for malignant neoplasm of breast (principal); R92.333 Mammographic heterogeneous density, bilateral breasts; D24.9 Benign neoplasm of unspecified breast
CPT/HCPCS: 77063; 77067

== ENCOUNTER 2024-12-01 17:46 | Outpatient (REF) | payer MEDICARE, BC, SELFPAY ==
[2024-12-01 15:31] LABS: ALT 19 U/L (14-59); AST 17 U/L (15-37); Albumin 3.6 g/dL (3.4-5.0); Alkaline Phosphatase 85 U/L (46-116); Anion Gap 8.3 mmol/L (3-11); BUN 13 mg/dL (7-18); Bilirubin, Total 0.5 mg/dL (0.2-1.0); CO2 29.7 mmol/L (21.0-32.0); Calcium 8.9 mg/dL (8.5-10.1); Calculated LDL 183 mg/dL (<100); Chloride 104 mmol/L (98-107); Cholesterol 283 mg/dL (<200); Estimated GFR 97.10 (mL/min/1.73m2); Glucose 89 mg/dL (74-106); HDL Cholesterol 73 mg/dL (>or=50); Potassium 4.7 mmol/L (3.5-5.1); Sodium 142 mmol/L (136-145); Total Protein 6.7 g/dL (6.4-8.2); Triglyceride 137 mg/dL (<150)
[2024-12-01 15:37] LABS: Glucose Negative (Negative)
[2024-12-01 16:17] LABS: COMMENT (LAB VIEW ONLY) 76.68 mg/dL; Microalb ug/mg Crea 10.3 ug/mg Cr
== END 2024-12-01 17:47 | disposition home or self-care (01) ==
LOC: NCHCN 17:46
PROVIDERS: PCP Nurse Practitioner Family; Visit Provider Nurse Practitioner Family
DX: I10 Essential (primary) hypertension (principal)
CPT/HCPCS: 80053; 80061; 81003; 82043; 82570

== ENCOUNTER → 2025-01-16 02:26 | Outpatient (CLI) | payer MEDICARE, BC, SELFPAY ==
--- NOTE | 2025-01-16 | DI.MAMMO_ITS ---
Exam(s) MAMMO SCREENING EXAM: MAMMO SCREENING CLINICAL HISTORY: SCREENING MAMMO Z12.31,family h/o breast ca. TECHNIQUE: Bilateral full field digital CC and MLO mammographic images were obtained with 3D tomosynthesis and utilizing computer aided detection (CAD). COMPARISON: Prior mammograms were reviewed. FINDINGS: There has been no significant change in the appearance and distribution of the fibroglandular tissue. Stable nodule laterally in left breast is unchanged from at least 2016. Benign-appearing nodule towards the upper quadrant of the right breast is also stable from all prior mammograms probably benign lymph node. There are no new spiculated masses nor new malignant appearing microcalcification groups. There is no significant architectural distortion nor skin thickening-retraction. IMPRESSION: No radiographic evidence of malignancy. Stable benign-appearing findings. BI-RADS Category 2 - Benign Findings Breast Density - Category C - The breast are heterogeneously dense, which may obscure small masses. Breast density Category C or D implies that the patient has dense breast tissue. Dense breast tissue can make it harder to find cancer on a mammogram. Dense breast tissue is also associated with an increased risk of breast cancer. This information about the result of the mammogram report was provided to the patient to raise their awareness. Use this report when you speak with the patient about their risks for breast cancer, which includes their family history. At that time, you may recommend additional screening tests (Ultrasound or MRI) as these tests may add significant information. A negative radiographic report should not delay biopsy if a dominant or clinically suspicious mass is present. Up to ten percent of cancers are not identified on mammography. A negative report may reinforce clinical impression. Adenosis and dense breasts may obscure an underlying neoplasm. False positive reports average 6 to 10%. Patient will receive a letter notifying them of these results.
== END ==
PROVIDERS: PCP Nurse Practitioner Family; Visit Provider Nurse Practitioner Family
DX: Z12.31 Encounter for screening mammogram for malignant neoplasm of breast (principal); Z80.3 Family history of malignant neoplasm of breast
CPT/HCPCS: 77063; 77067